=== PATIENT | male | born 1945 | race African-American/Black ===

== ENCOUNTER 2018-03-18 16:09 | Inpatient (IN) | payer MEDICARE ==
[~2018-03-18] VITALS: Ht 170.2 cm; Wt 88.9 kg
--- NOTE | 2018-03-18 16:35 | PHYS DOC ---
Adult General Chief Complaint Chief Complaint: CHEST PAIN HPI HPI 72-year-old male presents to ER via POV with complaints of intermittent chest pain for the past 3 months. Patient states this morning at 3 AM he did have some increase in discomfort which radiated into his left upper arm and center of back. Pt reports he has had intermittent nausea and felt clammy. He reports he has had SOA w/exertion. He reports he had some intermittent dizziness but was able to drive himself to the ER. Pt reports current pain at 6/10 with increased pain with palp. of chest/back/arm. Pt reports he takes 81mg Aspirin daily but uncertain if he took 1 this morning. He denies being smoker, recent travel, or previous heart attack. He reports he has been told he has weak heart valve and has appt scheduled next wk with certified mortician. Review of Systems Review of Systems Constitutional: Denies fever or chills [] Eyes: Denies change in visual acuity, redness, or eye pain [] HENT: Denies nasal congestion or sore throat [] Respiratory: Denies cough. Reports intermittent SOA w/exertion Cardiovascular: Mid CP radiates into lt upper arm/center of back GI: Denies abdominal pain, vomiting, bloody stools or diarrhea. Reports intermittent nausea this morning- denies on initial exam : Denies dysuria or hematuria [] Musculoskeletal: Denies joint pain. Mid center back pain intermittent- denies on initial exam Integument: Denies rash or skin lesions. Denies swelling Neurologic: Denies headache, focal weakness or sensory changes. Reports intermittent dizziness- denies on initial exam All other systems were reviewed and found to be within normal limits, except as documented in this note. Current Medications Current Medications Current Medications Medications (Trade) Dose Ordered Sig/[facility] Start Time Stop Time Status Last Admin Dose Admin Albuterol/ Ipratropium (Duoneb) 3 ml 1X ONCE 03/18/18 17:45 03/18/18 17:46 DC 03/18/18 17:30 3 ML Aspirin (Children'S Aspirin) 324 mg 1X ONCE 03/18/18 16:45 03/18/18 16:46 DC 03/18/18 16:44 324 MG Nitroglycerin (Nitro-Bid Oint) 0.5 inch 1X ONCE 03/18/18 18:30 8/23/18 18:31 DC 03/18/18 18:12 0.5 INCH Nitroglycerin (Nitrostat) 0.4 mg 1X ONCE 03/18/18 16:45 03/18/18 16:46 DC 03/18/18 16:48 0.4 MG Sodium Chloride 500 ml @ 500 mls/hr 1X ONCE 03/18/18 16:45 03/18/18 17:44 DC 03/18/18 16:45 500 MLS/HR Allergies Allergies Allergies Coded Allergies Type Severity Reaction Last Updated Verified No Known Drug Allergies 03/18/18 No Physical Exam Physical Exam Constitutional: Well developed, well nourished, no acute distress, non-toxic appearance. [] HENT: Normocephalic, atraumatic, bilateral external ears normal, oropharynx moist, no oral exudates, nose normal. [] Eyes: PERRLA, EOMI, conjunctiva normal, no discharge. [] Neck: Normal range of motion, no tenderness, supple, no stridor. [] Cardiovascular:Heart rate regular rhythm, no murmur [] Lungs & Thorax: Bilateral breath sounds clear to auscultation [] Abdomen: Bowel sounds normal, soft, no tenderness, no masses, no pulsatile masses. [] Skin: Warm, dry, no erythema, no rash. [] Back: No tenderness, no CVA tenderness. [] Extremities: No tenderness, no cyanosis, no clubbing, ROM intact, no edema. [] Neurologic: Alert and oriented X 3, normal motor function, normal sensory function, no focal deficits noted. [] Psychologic: Affect normal, judgement normal, mood normal. [] Current Patient Data Vital Signs Vital Signs Date Time Temp Pulse Resp B/P (MAP) Pulse Ox O2 Delivery O2 Flow Rate FiO2 03/18/18 18:31 56 172/84 (113) 97 Room Air 03/18/18 18:05 12 03/18/18 16:11 98.3 98.3 Lab Values Laboratory Tests Test 03/18/18 16:31 03/18/18 16:43 03/18/18 18:10 White Blood Count 4.0 x10^3/uL (4.0-11.0) Red Blood Count 4.90 x10^6/uL (4.30-5.70) Hemoglobin 14.3 g/dL (13.0-17.5) Hematocrit 40.9 % (39.0-53.0) Mean Corpuscular Volume 84 fL (79-100) Mean Corpuscular Hemoglobin 29 pg (25-35) Mean Corpuscular Hemoglobin Concent 35 g/dL (31-37) Red Cell Distribution Width 14.4 % (11.5-14.5) Platelet Count 174 x10^3/uL (140-400) Neutrophils (%) (Auto) 47 % (31-73) Lymphocytes (%) (Auto) 42 % (24-48) Monocytes (%) (Auto) 8 % (0-9) Eosinophils (%) (Auto) 3 % (0-3) Basophils (%) (Auto) 1 % (0-3) Neutrophils # (Auto) 1.9 x10^3uL (1.8-7.7) Lymphocytes # (Auto) 1.7 x10^3/uL (1.0-4.8) Monocytes # (Auto) 0.3 x10^3/uL (0.0-1.1) Eosinophils # (Auto) 0.1 x10^3/uL (0.0-0.7) Basophils # (Auto) 0.0 x10^3/uL (0.0-0.2) Prothrombin Time 13.8 SEC (11.7-14.0) Prothrombin Time INR 1.1 (0.8-1.1) PTT 24 SEC (24-38) Sodium Level 137 mmol/L (136-145) Potassium Level 3.6 mmol/L (3.5-5.1) Chloride Level 103 mmol/L (98-107) Carbon Dioxide Level 27 mmol/L (21-32) Anion Gap 7 (6-14) Blood Urea Nitrogen 10 mg/dL (8-26) Creatinine 1.2 mg/dL (0.7-1.3) Estimated GFR (Cockcroft-Gault) 72.4 BUN/Creatinine Ratio 8 (6-20) Glucose Level 166 mg/dL (70-99) H Calcium Level 8.5 mg/dL (8.5-10.1) Magnesium Level 2.0 mg/dL (1.8-2.4) Total Bilirubin 0.4 mg/dL (0.2-1.0) Aspartate Amino Transferase (AST) 16 U/L (15-37) Alanine Aminotransferase (ALT) 26 U/L (16-63) Alkaline Phosphatase 72 U/L (46-116) Creatine Kinase 135 U/L (39-308) Creatine Kinase MB (Mass) 1.3 ng/mL (0.0-3.6) Creatine Kinase MB Relative Index 1.0 % (0-4) Troponin I Quantitative 0.018 ng/mL (0.000-0.055) 0.019 ng/mL (0.000-0.055) QL-Rjl-A-Type Natriuretic Peptide 632 pg/mL (0-124) H Total Protein 6.8 g/dL (6.4-8.2) Albumin 3.5 g/dL (3.4-5.0) Albumin/Globulin Ratio 1.1 (1.0-1.7) Urine Collection Type Unknown Urine Color Yellow Urine Clarity Clear Urine pH 6.0 Urine Specific [place] <=1.005 Urine Protein Negative mg/dL (NEG-TRACE) Urine Glucose (UA) Negative mg/dL (NEG) Urine Ketones (Stick) Negative mg/dL (NEG) Urine Blood Negative (NEG) Urine Nitrite Negative (NEG) Urine Bilirubin Negative (NEG) Urine Urobilinogen Dipstick 0.2 mg/dL (0.2 mg/dL) Urine Leukocyte Esterase Negative (NEG) Urine RBC 0 /HPF (0-2) Urine WBC 0 /HPF (0-4) Urine Squamous Epithelial Cells Occ /LPF Urine Bacteria 0 /HPF (0-FEW) Laboratory Tests 03/18/18 16:31 Laboratory Tests 03/18/18 16:31 EKG EKG EKG obtained 03/18/18 at [address] Avenadño Sinus rhythm Lt axis deviation Vent rate 70 2nd EKG EKG obtained 03/18/18 at [address] Albrecht Sinus rhythm Similar to previous EKG on pt obtained today Vent rate 64 Radiology/Procedures Radiology/Procedures CHEST PA LATERAL History: Atraumatic mid sternal chest pain today radiating to the left arm, nausea, hypertension Comparison: None. Findings: 2 views of the chest are submitted. There is no infiltrate, pneumothorax, or effusion. The cardiac silhouette is within normal limits in size. Impression: 1. There is no evidence of acute cardiopulmonary disease. Electronically signed by: Anjel Almaraz MD (03/18/2018 5:11 PM) [id number] DICTATED and SIGNED BY: ANJEL ALMARAZ MD DATE: 03/18/18 1710 Indication:dizziness, "foggy vision" today, no priors TECHNIQUE: CT head without IV contrast COMPARISON:None FINDINGS: No pathologic extra-axial or intra-axial fluid collection. The ventricles and basal cisterns are within normal limits. No acute intracranial bleed. No focal loss of tierney-white differentiation. Orbits within normal limits. No suspicious calvarial lesion. Visualized paranasal sinuses and mastoid air cells are clear. IMPRESSION: No acute intracranial process. If concern for acute ischemic stroke is high, please consider MRI brain. Electronically signed by: Evan Merritt DO (03/18/2018 7:37 PM) [facility] DICTATED and SIGNED BY: EVAN MERRITT DO DATE: 03/18/18 193 Course & Med Decision Making Course & Med Decision Making Pertinent Labs and Imaging studies reviewed. (See chart for details) 1720: Discussed test results with pt with no acute findings on chest xray; EKG with no acute ST elevation/STEMI and troponin <0.018; other labs unremarkable. Pt reports with 1 nitro his CP has subsided. Pt on re-exam has rhonchi bilat. upper fortune- resp. are equal/nonlabored. Discussed giving Duoneb and then will re-eval lung sounds. With pt's CP intermittent x3 mo. and sxs starting today at 3 a.m. pt had EKG/ labs/chest xray obtained with continuous cardiac monitoring while in ER. EKG with no acute STEMI and troponin was neg. Pt has scheduled appointment with his certified mortician next week which he was advised to keep. Pt feels comfortable with home discharge and stated if sxs worsen or with concerns he would return to ER. 1745: RN reports patient has complaints of increased nausea and has blurred vision. He denies ALBERTO or eye pain. He is A&Ox3 with no focal neuro deficits. Pt reports he feels his CP has increased into his back again also. Will repeat EKG and troponin. Admission was discussed with change in sxs. Pt wants to discuss admission with his prior to agreeing with plan. 1817: spoke with pt's Erika via phone and she reports pt heart monitor on 2 wks ago and had abnorm. heart rhythms including runs of Vtach- she also reports pt had heart cath 1 mo. ago and his LAD is 50% occluded. Pt had not reported any of this during initial exam and during re-evaluations. Pt's reports pt had TIA approx. 5-6 wks ago when he was in [facility] and they opted not to give TPA during that episode with most sxs resolving without tx. She reports pt has had lt blurring since then. Discussed pt's plan of care and that he would be admitted to hosp. for further eval/care/monitoring. 183: spoke with Dr. Mcguire, hospitalist and discussed pt's case/plans for admission- CT head is pending at time of admit. Pt's repeat EKG with no acute changes when compared to previous. Repeat troponin <0.019. Pt had 1/2" nitro paste applied and at time of admission he reported CP at 1/10 denying SOA. He reports vision remained slightly blurred but had improved. He was A&Ox3 with NIHSS of 0. Pt's case and plan of care was discussed with Dr. Avendaño. Dragon Disclaimer Dragon Disclaimer This electronic medical record was generated, in whole or in part, using a voice recognition dictation system. Departure Departure Impression: Primary Impression: Chest pain Additional Impressions: Dizziness Blurred vision, bilateral Disposition: ADMITTED INPATIENT Admitting Physician: Felipa Mcguire Condition: STABLE Referrals: VAL FERRELL MD (PCP) Problem Qualifiers BENJAMIN JENNINGS APRN Mar 18, 2018 16:35
[2018-03-18 16:44] LABS: BASO % 1 % (0-3); EOS # 0.1 x10^3/uL (0.0-0.7); EOS % 3 % (0-3); HEMATOCRIT 40.9 % (39.0-53.0); HEMOGLOBIN 14.3 g/dL (13.0-17.5); LYMPH # 1.7 x10^3/uL (1.0-4.8); LYMPH % 42 % (24-48); MEAN CORPUSCULAR HEMOGLOBIN 29 pg (25-35); MEAN CORPUSCULAR HGB CONC 35 g/dL (31-37); MEAN CORPUSCULAR VOLUME 84 fL (79-100); MONO # 0.3 x10^3/uL (0.0-1.1); MONO % 8 % (0-9); NEUT # 1.9 x10^3uL (1.8-7.7); NEUT % 47 % (31-73); PLATELET COUNT 174 x10^3/uL (140-400); RED CELL DISTRIBUTION WIDTH 14.4 % (11.5-14.5)
[2018-03-18] MEDS ORDERED: NITROGLYCERIN SUBLINGUAL 0.4 MG BOTTLE OF 25. SL ONE (16:45)
[2018-03-18] MEDS ORDERED: IV NORMAL SALINE 500ML BAG 500 ML IV ONE (16:45)
[2018-03-18] MEDS ORDERED: ASPIRIN CHEWABLE 81 MG TABLET. PO ONE (16:45)
[2018-03-18 16:59] LABS: PROTHROMBIN TIME PATIENT 13.8 SEC (11.7-14.0)
[2018-03-18 17:00] LABS: CALCIUM 8.5 mg/dL (8.5-10.1); CREATININE 1.2 mg/dL (0.7-1.3); GFR 72.4; POTASSIUM 3.6 mmol/L (3.5-5.1)
[2018-03-18 17:06] LABS: ALBUMIN 3.5 g/dL (3.4-5.0); ALBUMIN/GLOBULIN RATIO 1.1 (1.0-1.7); TOTAL BILIRUBIN 0.4 mg/dL (0.2-1.0); TOTAL PROTEIN 6.8 g/dL (6.4-8.2)
--- NOTE | 2018-03-18 17:14 | RAD ---
CHEST PA LATERAL History: Atraumatic mid sternal chest pain today radiating to the left arm, nausea, hypertension Comparison: None. Findings: 2 views of the chest are submitted. There is no infiltrate, pneumothorax, or effusion. The cardiac silhouette is within normal limits in size. Impression: 1. There is no evidence of acute cardiopulmonary disease. Electronically signed by: Neville Schmidt MD (03/18/2018 5:11 PM) [id number]
[2018-03-18] MEDS ORDERED: IPRATRPIUM/ALBUTEROL 0.5/2.5MG 3 ML NEBU. NEB ONE (17:45)
[2018-03-18 18:14] LABS: BILIRUBIN,URINE NEGATIVE (NEG); CLARITY,URINE CLEAR; COLOR,URINE YELLOW; NITRITE,URINE NEGATIVE (NEG); PROTEIN,URINE NEGATIVE (NEG-TRACE); UROBILINOGEN,URINE 0.2 mg/dL (0.2 mg/dL)
[2018-03-18 18:25] LABS: BACTERIA,URINE 0 /HPF (0-FEW); RBC,URINE 0 /HPF (0-2); SQUAMOUS EPITHELIAL CELL,UR OCC /LPF; WBC,URINE 0 /HPF (0-4)
[2018-03-18] MEDS ORDERED: NITROGLYCERIN OINT 1 GM PACKET. TP ONE (18:30)
--- NOTE | 2018-03-18 19:40 | RAD ---
PQRS Compliance statement: One or more of the following individualized dose reduction techniques were utilized for this examination: 1. Automated exposure control. 2. Adjustment of the mA and/or kV according to patient size. 3. Use of iterative reconstruction technique. Indication:dizziness, "foggy vision" today, no priors TECHNIQUE: CT head without IV contrast COMPARISON:None FINDINGS: No pathologic extra-axial or intra-axial fluid collection. The ventricles and basal cisterns are within normal limits. No acute intracranial bleed. No focal loss of tierney-white differentiation. Orbits within normal limits. No suspicious calvarial lesion. Visualized paranasal sinuses and mastoid air cells are clear. IMPRESSION: No acute intracranial process. If concern for acute ischemic stroke is high, please consider MRI brain. Electronically signed by: Evan Merritt DO (03/18/2018 7:37 PM) [facility]
--- NOTE | 2018-03-18 19:55 | PDOC1 ---
History and Physical Date of Admission Date of Admission DATE: 03/18/18 TIME: 19:54 History of Present Illness History of Present Illness Mr. Ibanez, is a 72-year-old male admti with sudden chest pain to right side of chest. Pain happened on his way to the [facility], and he was brought here urgently by EMS, even though he is usually seen for all prior rubalcava at [facility] His pain this evening is improved, it was right sided and sharp, and maybe improved with nitro paste given in the ER. THe discomfort radiated into his left upper arm and center of back. He has intermittent chest pain for the past 3 months, was given nitro by cardio, didn't have any with him when he went to the [facility] today. . He reports he has had SOA w/exertion. POssible nausea, but he is now eating well. Past Medical History Cardiovascular: CAD, HTN Pulmonary: No pertinent hx Endocrine: No pertinent hx Family History Family History: Heart Disease Social History Smoke: No ALCOHOL: rare Drugs: None Current Problem List Problem List Problems Medical Problems: (1) Blurred vision, bilateral Status: Acute (2) Chest pain Status: Acute (3) Dizziness Status: Acute Current Medications Current Medications Current Medications Aspirin (Children'S Aspirin) 324 mg 1X ONCE PO Last administered on 03/18/18at 16:44; Start 03/18/18 at 16:45; Stop 03/18/18 at 16:46; Status DC Nitroglycerin (Nitrostat) 0.4 mg 1X ONCE SL Last administered on 03/18/18at 16: 48; Start 03/18/18 at 16:45; Stop 03/18/18 at 16:46; Status DC Sodium Chloride 500 ml @ 500 mls/hr 1X ONCE IV Last administered on at 16:45; Start 03/18/18 at 16:45; Stop 03/18/18 at 17:44; Status DC Albuterol/ Ipratropium (Duoneb) 3 ml 1X ONCE NEB Last administered on at 17:30; Start 03/18/18 at 17:45; Stop 03/18/18 at 17:46; Status DC Nitroglycerin (Nitro-Bid Oint) 0.5 inch 1X ONCE TP Last administered on at 18:12; Start 03/18/18 at 18:30; Stop 03/18/18 at 18:31; Status DC Allergies Allergies: Coded Allergies: No Known Drug Allergies (Unverified , 03/18/18) ROS General: No: Chills, Night Sweats, Fatigue, Malaise, Appetite, Other PSYCHOLOGICAL ROS: No: Anxiety, Behavioral Disorder, Concentration difficultie , Decreased libido, Depression, Disorientation, Hallucinations, Hostility, Irritablity, Memory difficulties, Mood Swings, Obsessive thoughts, Physical abuse, Sexual abuse, Sleep disturbances, Suicidal ideation, Other Eyes: No Blurry vision, No Decreased vision, No Double vision, No Dry eyes, No Excessive tearing, No Eye Pain, No Itchy Eyes, No Loss of vision, No Photophobia , No Scotomata, No Uses contacts, No Uses glasses, No Other HEENT: No: Heacaches, Visual Changes, Hearing change, Nasal congestion, Nasal discharge, Oral lesions, Sinus pain, Sore Throat, Epistaxis, Sneezing, Snoring, Tinnitus, Vertigo, Vocal changes, Other Respiratory: YES: SOB with excertion; No: Cough, Hemoptysis, Orthopnea, Pleuritic Pain, Shortness of breath, Sputum Changes, Stridor, Tachypnea, Wheezing, Other Cardiovascular: yes Chest Pain Gastrointestinal: No Nausea, No Vomiting, No Abdominal Pain, No Diarrhea, No Constipation, No Melena, No Hematochezia, No Other Genitourinary: No Dysuria, No Frequency, No Incontinence, No Hematuria, No Retention, No Discharge, No Urgency, No Pain, No Flank Pain, No Other, No , No , No , No , No , No , No Musculoskeletal: Yes Joint Stiffness Neurological: No Behavorial Changes, No Bowel/Bladder ControlChng, No Confusion , No Dizziness, No Gait Disturbance, No Headaches, No Impaired Coord/balance, No Memory Loss, No Numbness/Tingling, No Seizures, No Speech Problems, No Tremors, No Visual Changes, No Weakness, No Other Skin: No Dry Skin, No Eczema, No Hair Changes, No Lumps, No Mole Changes, No Mottling, No Nail Changes, No Pruritus, No Rash, No Skin Lesion Changes, No Other, No Acne Physical Exam General: Alert, Cooperative, No acute distress HEENT: Mucous membr. moist/pink Lungs: Clear to auscultation Heart: S1S2, no murmurs Abdomen: Normal bowel sounds Rectal Exam: not examined Extremities: No cyanosis, No edema, Normal pulses Skin: No rashes Neuro: Normal speech, Normal tone, Cranial nerves 3-12 NL Psych/Mental Status: Mental status NL, Mood NL Vitals Vitals Vital Signs Date Time Temp Pulse Resp B/P (MAP) Pulse Ox O2 Delivery O2 Flow Rate FiO2 03/18/18 18:31 56 172/84 (113) 97 Room Air 03/18/18 18:05 12 03/18/18 16:11 98.3 98.3 Labs Labs Laboratory Tests Test 03/18/18 16:31 03/18/18 16:43 03/18/18 18:10 White Blood Count 4.0 x10^3/uL (4.0-11.0) Red Blood Count 4.90 x10^6/uL (4.30-5.70) Hemoglobin 14.3 g/dL (13.0-17.5) Hematocrit 40.9 % (39.0-53.0) Mean Corpuscular Volume 84 fL (79-100) Mean Corpuscular Hemoglobin 29 pg (25-35) Mean Corpuscular Hemoglobin Concent 35 g/dL (31-37) Red Cell Distribution Width 14.4 % (11.5-14.5) Platelet Count 174 x10^3/uL (140-400) Neutrophils (%) (Auto) 47 % (31-73) Lymphocytes (%) (Auto) 42 % (24-48) Monocytes (%) (Auto) 8 % (0-9) Eosinophils (%) (Auto) 3 % (0-3) Basophils (%) (Auto) 1 % (0-3) Neutrophils # (Auto) 1.9 x10^3uL (1.8-7.7) Lymphocytes # (Auto) 1.7 x10^3/uL (1.0-4.8) Monocytes # (Auto) 0.3 x10^3/uL (0.0-1.1) Eosinophils # (Auto) 0.1 x10^3/uL (0.0-0.7) Basophils # (Auto) 0.0 x10^3/uL (0.0-0.2) Prothrombin Time 13.8 SEC (11.7-14.0) Prothromb Time International Ratio 1.1 (0.8-1.1) Activated Partial Thromboplast Time 24 SEC (24-38) Sodium Level 137 mmol/L (136-145) Potassium Level 3.6 mmol/L (3.5-5.1) Chloride Level 103 mmol/L (98-107) Carbon Dioxide Level 27 mmol/L (21-32) Anion Gap 7 (6-14) Blood Urea Nitrogen 10 mg/dL (8-26) Creatinine 1.2 mg/dL (0.7-1.3) Estimated GFR (Cockcroft-Gault) 72.4 BUN/Creatinine Ratio 8 (6-20) Glucose Level 166 mg/dL (70-99) Calcium Level 8.5 mg/dL (8.5-10.1) Magnesium Level 2.0 mg/dL (1.8-2.4) Total Bilirubin 0.4 mg/dL (0.2-1.0) Aspartate Amino Transf (AST/SGOT) 16 U/L (15-37) Alanine Aminotransferase (ALT/SGPT) 26 U/L (16-63) Alkaline Phosphatase 72 U/L (46-116) Creatine Kinase 135 U/L (39-308) Creatine Kinase MB (Mass) 1.3 ng/mL (0.0-3.6) Creatine Kinase MB Relative Index 1.0 % (0-4) Troponin I Quantitative 0.018 ng/mL (0.000-0.055) 0.019 ng/mL (0.000-0.055) PO-Sul-I-Type Natriuretic Peptide 632 pg/mL (0-124) Total Protein 6.8 g/dL (6.4-8.2) Albumin 3.5 g/dL (3.4-5.0) Albumin/Globulin Ratio 1.1 (1.0-1.7) Urine Collection Type Unknown Urine Color Yellow Urine Clarity Clear Urine pH 6.0 Urine Specific Kenneth <=1.005 Urine Protein Negative mg/dL (NEG-TRACE) Urine Glucose (UA) Negative mg/dL (NEG) Urine Ketones (Stick) Negative mg/dL (NEG) Urine Blood Negative (NEG) Urine Nitrite Negative (NEG) Urine Bilirubin Negative (NEG) Urine Urobilinogen Dipstick 0.2 mg/dL (0.2 mg/dL) Urine Leukocyte Esterase Negative (NEG) Urine RBC 0 /HPF (0-2) Urine WBC 0 /HPF (0-4) Urine Squamous Epithelial Cells Occ /LPF Urine Bacteria 0 /HPF (0-FEW) Laboratory Tests Test 03/18/18 16:31 03/18/18 16:43 03/18/18 18:10 White Blood Count 4.0 x10^3/uL (4.0-11.0) Red Blood Count 4.90 x10^6/uL (4.30-5.70) Hemoglobin 14.3 g/dL (13.0-17.5) Hematocrit 40.9 % (39.0-53.0) Mean Corpuscular Volume 84 fL (79-100) Mean Corpuscular Hemoglobin 29 pg (25-35) Mean Corpuscular Hemoglobin Concent 35 g/dL (31-37) Red Cell Distribution Width 14.4 % (11.5-14.5) Platelet Count 174 x10^3/uL (140-400) Neutrophils (%) (Auto) 47 % (31-73) Lymphocytes (%) (Auto) 42 % (24-48) Monocytes (%) (Auto) 8 % (0-9) Eosinophils (%) (Auto) 3 % (0-3) Basophils (%) (Auto) 1 % (0-3) Neutrophils # (Auto) 1.9 x10^3uL (1.8-7.7) Lymphocytes # (Auto) 1.7 x10^3/uL (1.0-4.8) Monocytes # (Auto) 0.3 x10^3/uL (0.0-1.1) Eosinophils # (Auto) 0.1 x10^3/uL (0.0-0.7) Basophils # (Auto) 0.0 x10^3/uL (0.0-0.2) Prothrombin Time 13.8 SEC (11.7-14.0) Prothromb Time International Ratio 1.1 (0.8-1.1) Activated Partial Thromboplast Time 24 SEC (24-38) Sodium Level 137 mmol/L (136-145) Potassium Level 3.6 mmol/L (3.5-5.1) Chloride Level 103 mmol/L (98-107) Carbon Dioxide Level 27 mmol/L (21-32) Anion Gap 7 (6-14) Blood Urea Nitrogen 10 mg/dL (8-26) Creatinine 1.2 mg/dL (0.7-1.3) Estimated GFR (Cockcroft-Gault) 72.4 BUN/Creatinine Ratio 8 (6-20) Glucose Level 166 mg/dL (70-99) Calcium Level 8.5 mg/dL (8.5-10.1) Magnesium Level 2.0 mg/dL (1.8-2.4) Total Bilirubin 0.4 mg/dL (0.2-1.0) Aspartate Amino Transf (AST/SGOT) 16 U/L (15-37) Alanine Aminotransferase (ALT/SGPT) 26 U/L (16-63) Alkaline Phosphatase 72 U/L (46-116) Creatine Kinase 135 U/L (39-308) Creatine Kinase MB (Mass) 1.3 ng/mL (0.0-3.6) Creatine Kinase MB Relative Index 1.0 % (0-4) Troponin I Quantitative 0.018 ng/mL (0.000-0.055) 0.019 ng/mL (0.000-0.055) AU-Kqk-A-Type Natriuretic Peptide 632 pg/mL (0-124) Total Protein 6.8 g/dL (6.4-8.2) Albumin 3.5 g/dL (3.4-5.0) Albumin/Globulin Ratio 1.1 (1.0-1.7) Urine Collection Type Unknown Urine Color Yellow Urine Clarity Clear Urine pH 6.0 Urine Specific Kenneth <=1.005 Urine Protein Negative mg/dL (NEG-TRACE) Urine Glucose (UA) Negative mg/dL (NEG) Urine Ketones (Stick) Negative mg/dL (NEG) Urine Blood Negative (NEG) Urine Nitrite Negative (NEG) Urine Bilirubin Negative (NEG) Urine Urobilinogen Dipstick 0.2 mg/dL (0.2 mg/dL) Urine Leukocyte Esterase Negative (NEG) Urine RBC 0 /HPF (0-2) Urine WBC 0 /HPF (0-4) Urine Squamous Epithelial Cells Occ /LPF Urine Bacteria 0 /HPF (0-FEW) VTE Prophylaxis Ordered VTE Prophylaxis Devices: No VTE Pharmacological Prophylaxi: Yes Assessment/Plan Assessment/Plan chest pain, angina, recent w/u at [facility], stress test, his implied stable angina, not on meds for CAD recent TIA - had been seen at some cognitive decline, 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
[2018-03-18] MEDS ORDERED: LISINOPRIL 10 MG TABLET PO ONE (20:00)
[2018-03-18] MEDS ORDERED: MORPHINE SULFATE 4 MG/ML VIAL. IV PRN (20:00)
--- NOTE | 2018-03-18 21:10 | PDOC2 ---
NEUROLOGY CONSULT Date of Admission Date of Admission DATE: 03/18/18 TIME: 21:02 Reason for Consult Reason for Consult: IMPRESSION: Blurred vision x 2 times. TIA symptoms. Dizziness. Nausea. Chest pain. CAD. HTN. HLD. RECOMMENDATIONS/PLAN: ASA 325 mg daily. Fasting lipid panel. Carotid A US + Doppler. Echo + bubble study. Lab: see orders. Please consult Cardiology. HISTORY OF THE PRESENT ILLNESS: 72-y-old male patient with above medical disease developed symptoms of chest pain. He also complained dizziness, light headiness, nausea and blurred vision 2 times lasting for about 1-3 minutes each time. No focalized sensory or motor deficits. PAST MEDICAL HISTORY: Please see above. PAST SURGERY HISTORY: No major surgery recently. ALLERGY: NKDA MEDICATIONS: Refer to [facility] HISTORY: Non contributory. SOCIAL HISTORY: Lives at home. Denies smoking, drinking, and illicit drug use. REVIEW OF SYSTEMS: Constitutional: No malnutrition, weight loss, cachexia. Head: No traumatic brain or head injury. Skin: No edema, or rash. Ear: No infection. Eyes: No vision loss or color blindness. Nose: No bleeding or purulent discharges. Hearing: No hearing decrease. Neck: No injury. Cardiac: CAD, HTN, HLD. Pulmonary: No COPD. GI: No GI ulcer, GI bleeding. Urinary/genital: No dysuria, incontinence, urinary retention. Endocrinologic: No cousin face, craniofacial dysmorphism, polydactyly\. Skeletomuscular: No muscular atrophy, deformity. Neurological: see HP. Psychiatric: Denies drug use/abuse. Otherwise, not [id number] review of systems. PHYSICAL EXAMINATION: General appearance is in subacute distress. HEENT: Normocephalic and nontraumatic. Eyes, nose, ears, and throat are unremarkable. Neck is supple. No lymphadenopathy. No crepitus. Cardiovascular: S1, S2, regular rate and rhythm. Pulmonary: Clear to auscultation bilaterally. Abdomen: Bowel sounds are positive. Abdomen is soft, nontender, and nondistended. Extremities: No rash, lesions, or edema. No restriction of range of motion NEUROLOGICAL EXAMINATION: Alert Oriented to time, place and person. PERRL. EOMI. CN: no focal findings. Muscle tone: within normal. Muscle strength: 5 DTR: 2 Plantar reflex: Flexor response bilaterally Gait: not examined in bed. Sensory exam: no abnormal findings. No cerebellar signs elicited. F-T-N test accurate. Current Medications Current Medications Current Medications Aspirin (Children'S Aspirin) 324 mg 1X ONCE PO Last administered on 03/18/18at 16:44; Start 03/18/18 at 16:45; Stop 03/18/18 at 16:46; Status DC Nitroglycerin (Nitrostat) 0.4 mg 1X ONCE SL Last administered on 03/18/18at 16: 48; Start 03/18/18 at 16:45; Stop 03/18/18 at 16:46; Status DC Sodium Chloride 500 ml @ 500 mls/hr 1X ONCE IV Last administered on at 16:45; Start 03/18/18 at 16:45; Stop 03/18/18 at 17:44; Status DC Albuterol/ Ipratropium (Duoneb) 3 ml 1X ONCE NEB Last administered on at 17:30; Start 03/18/18 at 17:45; Stop 03/18/18 at 17:46; Status DC Nitroglycerin (Nitro-Bid Oint) 0.5 inch 1X ONCE TP Last administered on at 18:12; Start 03/18/18 at 18:30; Stop 03/18/18 at 18:31; Status DC Lisinopril (Prinivil) 10 mg 1X ONCE PO ; Start 03/18/18 at 20:00; Stop at 20:01; Status UNV Carvedilol (Coreg) 6.25 mg BIDWMEALS PO ; Start 03/19/18 at 08:00; Status UNV Morphine Sulfate (Morphine Sulfate) 4 mg Q2HR PRN IV pain; Start 03/18/18 at 20 :00; Status UNV Allergies Allergies: Allergies Coded Allergies Type Severity Reaction Last Updated Verified No Known Drug Allergies 03/18/18 No ROS Review of System The patient denies any associated fevers, chills, headache, ear pain, rhinorrhea , sore throat, stiff neck, productive cough, chest pain, shortness of breath, back or flank pain, abdominal pain, nausea, vomiting, diarrhea, constipation, dysuria, rash, numbness, weakness, tingling, incontinence, difficulty ambulating, or diaphoresis. Physical Exam Physical Exam General: Well developed, well nourished, no acute distress, well appearing HEENT: Pupils equally round and reactive to light, EOMI, no discharge, normal conjunctiva Neck: Supple, no nuchal rigidity, no JVD, trachea midline, no tenderness Cardiac: RRR, no murmurs, no gallops, no rubs Chest/Lungs: CTAB, no wheeze, no rhonchi, no crackles Abdomen: soft, non-distended, no guarding, no peritoneal signs, non-tender Back: No tenderness Extremities: no edema, pulses intact, non-tender,capillary refill <3 sec bilateral upper and lower extremities, Neuro: Alert and oriented x 4, no focal deficits, normal speech Vitals Vitals: Vital Signs Date Time Temp Pulse Resp B/P (MAP) Pulse Ox O2 Delivery O2 Flow Rate FiO2 03/18/18 18:31 56 172/84 (113) 97 Room Air 03/18/18 18:05 12 03/18/18 16:11 98.3 98.3 Labs Labs Laboratory Tests Test 03/18/18 16:31 03/18/18 16:43 03/18/18 18:10 White Blood Count 4.0 x10^3/uL (4.0-11.0) Red Blood Count 4.90 x10^6/uL (4.30-5.70) Hemoglobin 14.3 g/dL (13.0-17.5) Hematocrit 40.9 % (39.0-53.0) Mean Corpuscular Volume 84 fL (79-100) Mean Corpuscular Hemoglobin 29 pg (25-35) Mean Corpuscular Hemoglobin Concent 35 g/dL (31-37) Red Cell Distribution Width 14.4 % (11.5-14.5) Platelet Count 174 x10^3/uL (140-400) Neutrophils (%) (Auto) 47 % (31-73) Lymphocytes (%) (Auto) 42 % (24-48) Monocytes (%) (Auto) 8 % (0-9) Eosinophils (%) (Auto) 3 % (0-3) Basophils (%) (Auto) 1 % (0-3) Neutrophils # (Auto) 1.9 x10^3uL (1.8-7.7) Lymphocytes # (Auto) 1.7 x10^3/uL (1.0-4.8) Monocytes # (Auto) 0.3 x10^3/uL (0.0-1.1) Eosinophils # (Auto) 0.1 x10^3/uL (0.0-0.7) Basophils # (Auto) 0.0 x10^3/uL (0.0-0.2) Prothrombin Time 13.8 SEC (11.7-14.0) Prothromb Time International Ratio 1.1 (0.8-1.1) Activated Partial Thromboplast Time 24 SEC (24-38) Sodium Level 137 mmol/L (136-145) Potassium Level 3.6 mmol/L (3.5-5.1) Chloride Level 103 mmol/L (98-107) Carbon Dioxide Level 27 mmol/L (21-32) Anion Gap 7 (6-14) Blood Urea Nitrogen 10 mg/dL (8-26) Creatinine 1.2 mg/dL (0.7-1.3) Estimated GFR (Cockcroft-Gault) 72.4 BUN/Creatinine Ratio 8 (6-20) Glucose Level 166 mg/dL (70-99) Calcium Level 8.5 mg/dL (8.5-10.1) Magnesium Level 2.0 mg/dL (1.8-2.4) Total Bilirubin 0.4 mg/dL (0.2-1.0) Aspartate Amino Transf (AST/SGOT) 16 U/L (15-37) Alanine Aminotransferase (ALT/SGPT) 26 U/L (16-63) Alkaline Phosphatase 72 U/L (46-116) Creatine Kinase 135 U/L (39-308) Creatine Kinase MB (Mass) 1.3 ng/mL (0.0-3.6) Creatine Kinase MB Relative Index 1.0 % (0-4) Troponin I Quantitative 0.018 ng/mL (0.000-0.055) 0.019 ng/mL (0.000-0.055) HD-Sly-N-Type Natriuretic Peptide 632 pg/mL (0-124) Total Protein 6.8 g/dL (6.4-8.2) Albumin 3.5 g/dL (3.4-5.0) Albumin/Globulin Ratio 1.1 (1.0-1.7) Urine Collection Type Unknown Urine Color Yellow Urine Clarity Clear Urine pH 6.0 Urine Specific Seney <=1.005 Urine Protein Negative mg/dL (NEG-TRACE) Urine Glucose (UA) Negative mg/dL (NEG) Urine Ketones (Stick) Negative mg/dL (NEG) Urine Blood Negative (NEG) Urine Nitrite Negative (NEG) Urine Bilirubin Negative (NEG) Urine Urobilinogen Dipstick 0.2 mg/dL (0.2 mg/dL) Urine Leukocyte Esterase Negative (NEG) Urine RBC 0 /HPF (0-2) Urine WBC 0 /HPF (0-4) Urine Squamous Epithelial Cells Occ /LPF Urine Bacteria 0 /HPF (0-FEW) Laboratory Tests Test 03/18/18 16:31 03/18/18 16:43 03/18/18 18:10 White Blood Count 4.0 x10^3/uL (4.0-11.0) Red Blood Count 4.90 x10^6/uL (4.30-5.70) Hemoglobin 14.3 g/dL (13.0-17.5) Hematocrit 40.9 % (39.0-53.0) Mean Corpuscular Volume 84 fL (79-100) Mean Corpuscular Hemoglobin 29 pg (25-35) Mean Corpuscular Hemoglobin Concent 35 g/dL (31-37) Red Cell Distribution Width 14.4 % (11.5-14.5) Platelet Count 174 x10^3/uL (140-400) Neutrophils (%) (Auto) 47 % (31-73) Lymphocytes (%) (Auto) 42 % (24-48) Monocytes (%) (Auto) 8 % (0-9) Eosinophils (%) (Auto) 3 % (0-3) Basophils (%) (Auto) 1 % (0-3) Neutrophils # (Auto) 1.9 x10^3uL (1.8-7.7) Lymphocytes # (Auto) 1.7 x10^3/uL (1.0-4.8) Monocytes # (Auto) 0.3 x10^3/uL (0.0-1.1) Eosinophils # (Auto) 0.1 x10^3/uL (0.0-0.7) Basophils # (Auto) 0.0 x10^3/uL (0.0-0.2) Prothrombin Time 13.8 SEC (11.7-14.0) Prothromb Time International Ratio 1.1 (0.8-1.1) Activated Partial Thromboplast Time 24 SEC (24-38) Sodium Level 137 mmol/L (136-145) Potassium Level 3.6 mmol/L (3.5-5.1) Chloride Level 103 mmol/L (98-107) Carbon Dioxide Level 27 mmol/L (21-32) Anion Gap 7 (6-14) Blood Urea Nitrogen 10 mg/dL (8-26) Creatinine 1.2 mg/dL (0.7-1.3) Estimated GFR (Cockcroft-Gault) 72.4 BUN/Creatinine Ratio 8 (6-20) Glucose Level 166 mg/dL (70-99) Calcium Level 8.5 mg/dL (8.5-10.1) Magnesium Level 2.0 mg/dL (1.8-2.4) Total Bilirubin 0.4 mg/dL (0.2-1.0) Aspartate Amino Transf (AST/SGOT) 16 U/L (15-37) Alanine Aminotransferase (ALT/SGPT) 26 U/L (16-63) Alkaline Phosphatase 72 U/L (46-116) Creatine Kinase 135 U/L (39-308) Creatine Kinase MB (Mass) 1.3 ng/mL (0.0-3.6) Creatine Kinase MB Relative Index 1.0 % (0-4) Troponin I Quantitative 0.018 ng/mL (0.000-0.055) 0.019 ng/mL (0.000-0.055) TU-Vyu-Q-Type Natriuretic Peptide 632 pg/mL (0-124) Total Protein 6.8 g/dL (6.4-8.2) Albumin 3.5 g/dL (3.4-5.0) Albumin/Globulin Ratio 1.1 (1.0-1.7) Urine Collection Type Unknown Urine Color Yellow Urine Clarity Clear Urine pH 6.0 Urine Specific Seney <=1.005 Urine Protein Negative mg/dL (NEG-TRACE) Urine Glucose (UA) Negative mg/dL (NEG) Urine Ketones (Stick) Negative mg/dL (NEG) Urine Blood Negative (NEG) Urine Nitrite Negative (NEG) Urine Bilirubin Negative (NEG) Urine Urobilinogen Dipstick 0.2 mg/dL (0.2 mg/dL) Urine Leukocyte Esterase Negative (NEG) Urine RBC 0 /HPF (0-2) Urine WBC 0 /HPF (0-4) Urine Squamous Epithelial Cells Occ /LPF Urine Bacteria 0 /HPF (0-FEW) GABRIELE CHAVARRIA MD Mar 18, 2018 21:10
[2018-03-18] MEDS ORDERED: diphenhydrAMINE HCL 25 MG CAPSULE PO ONE (21:15)
[2018-03-18] MEDS ORDERED: NITROGLYCERIN SUBLINGUAL 0.4 MG BOTTLE OF 25. SL PRN (21:15)
[2018-03-18] MEDS: traMADol 50 MG TABLET PO PRN (21:24)
[2018-03-19] MEDS ORDERED: ONDANSETRON PF 4 MG/2 ML VIAL. IV PRN (02:15)
[2018-03-19] MEDS ORDERED: ATOR40TA PO (06:03)
[2018-03-19] MEDS ORDERED: HYDR12.58 PO (06:03)
[2018-03-19] MEDS ORDERED: ASPI-630 PO (06:03)
--- NOTE | 2018-03-19 06:10 | EKG ---
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
--- NOTE | 2018-03-19 06:11 | EKG ---
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
[2018-03-19 07:00] VITALS: BP 140/81
[2018-03-19] MEDS ORDERED: CARVEDILOL 6.25 MG TABLET. PO SCH (08:00)
[2018-03-19] MEDS ORDERED: ASPIRIN 325 MG TABLET PO SCH (08:00)
--- NOTE | 2018-03-19 08:00 | RAD ---
Carotid ultrasound, 03/18/2018: HISTORY: Left arm pain Duplex evaluation of the carotid arteries and neck was performed including grayscale, color-flow and spectral Doppler analysis. There is mild intimal thickening in the common carotid arteries and at the carotid bifurcations. The peak systolic velocity in the right internal carotid artery is 64 cm/s with an end-diastolic velocity of 14 cm/s. The peak systolic velocity in the left internal carotid artery is 67 cm per sec with an end-diastolic velocity of 20 cm/s. These Doppler findings do not suggest significant stenosis. Antegrade flow is present in both vertebral arteries in the neck. IMPRESSION: No duplex evidence of significant carotid stenosis in the neck. Note: Stenosis calculations for CT, MRA and conventional angiography are based upon determination of the distal ICA diameter in accordance with the NASCET methodology. Stenosis calculations for Doppler studies are derived from validated velocity criteria which are known to correlate with NASCET methodology of determining stenosis. Electronically signed by: Taye Castle MD (03/19/2018 7:57 AM) [facility]
[2018-03-19 08:05] LABS: BASO % 0 % (0-3); EOS # 0.1 x10^3/uL (0.0-0.7); EOS % 3 % (0-3); HEMOGLOBIN 13.9 g/dL (13.0-17.5); LYMPH # 1.4 x10^3/uL (1.0-4.8); LYMPH % 38 % (24-48); MEAN CORPUSCULAR HEMOGLOBIN 28 pg (25-35); MEAN CORPUSCULAR HGB CONC 34 g/dL (31-37); MEAN CORPUSCULAR VOLUME 84 fL (79-100); MONO # 0.4 x10^3/uL (0.0-1.1); MONO % 11 % (0-9); NEUT # 1.7 x10^3uL (1.8-7.7); NEUT % 48 % (31-73); PLATELET COUNT 166 x10^3/uL (140-400); RED BLOOD COUNT 4.87 x10^6/uL (4.30-5.70); RED CELL DISTRIBUTION WIDTH 14.1 % (11.5-14.5); WHITE BLOOD COUNT 3.7 x10^3/uL (4.0-11.0)
[2018-03-19 08:23] LABS: ALBUMIN 3.2 g/dL (3.4-5.0); CALCIUM 8.3 mg/dL (8.5-10.1); CREATININE 1.2 mg/dL (0.7-1.3); GFR 72.4; TOTAL BILIRUBIN 0.6 mg/dL (0.2-1.0); TOTAL PROTEIN 6.3 g/dL (6.4-8.2)
[2018-03-19 08:28] LABS: CHOLESTEROL/HDL RATIO 2.8
[2018-03-19] MEDS ORDERED: ACETAMINOPHEN 500 MG TABLET PO PRN (09:00)
--- NOTE | 2018-03-19 10:02 | PDOC ---
PROGRESS NOTES Chief Complaint Chief Complaint CHest pain, hx CAD Blurred vision x 2 times. TIA symptoms. Dizziness. NAusea HTN. HLD. History of Present Illness History of Present Illness Out having tests Neurology note reviewed, for echo with bubble study, carotid ultrasounds Plan: Await from tests Neurology and cardiology involved Overnight chart reviewed, no overnight calls or acute issues LAbs okay Vitals Vitals Vital Signs Date Time Temp Pulse Resp B/P (MAP) Pulse Ox O2 Delivery O2 Flow Rate FiO2 03/19/18 07:00 97.5 55 16 140/81 (100) 94 Room Air 97.5 Labs LABS Laboratory Tests Test 03/18/18 16:31 03/18/18 16:43 03/18/18 18:10 03/19/18 07:33 White Blood Count 4.0 x10^3/uL (4.0-11.0) 3.7 x10^3/uL (4.0-11.0) Red Blood Count 4.90 x10^6/uL (4.30-5.70) 4.87 x10^6/uL (4.30-5.70) Hemoglobin 14.3 g/dL (13.0-17.5) 13.9 g/dL (13.0-17.5) Hematocrit 40.9 % (39.0-53.0) 41.0 % (39.0-53.0) Mean Corpuscular Volume 84 fL (79-100) 84 fL (79-100) Mean Corpuscular Hemoglobin 29 pg (25-35) 28 pg (25-35) Mean Corpuscular Hemoglobin Concent 35 g/dL (31-37) 34 g/dL (31-37) Red Cell Distribution Width 14.4 % (11.5-14.5) 14.1 % (11.5-14.5) Platelet Count 174 x10^3/uL (140-400) 166 x10^3/uL (140-400) Neutrophils (%) (Auto) 47 % (31-73) 48 % (31-73) Lymphocytes (%) (Auto) 42 % (24-48) 38 % (24-48) Monocytes (%) (Auto) 8 % (0-9) 11 % (0-9) Eosinophils (%) (Auto) 3 % (0-3) 3 % (0-3) Basophils (%) (Auto) 1 % (0-3) 0 % (0-3) Neutrophils # (Auto) 1.9 x10^3uL (1.8-7.7) 1.7 x10^3uL (1.8-7.7) Lymphocytes # (Auto) 1.7 x10^3/uL (1.0-4.8) 1.4 x10^3/uL (1.0-4.8) Monocytes # (Auto) 0.3 x10^3/uL (0.0-1.1) 0.4 x10^3/uL (0.0-1.1) Eosinophils # (Auto) 0.1 x10^3/uL (0.0-0.7) 0.1 x10^3/uL (0.0-0.7) Basophils # (Auto) 0.0 x10^3/uL (0.0-0.2) 0.0 x10^3/uL (0.0-0.2) Prothrombin Time 13.8 SEC (11.7-14.0) Prothromb Time International Ratio 1.1 (0.8-1.1) Activated Partial Thromboplast Time 24 SEC (24-38) Sodium Level 137 mmol/L (136-145) 140 mmol/L (136-145) Potassium Level 3.6 mmol/L (3.5-5.1) 4.0 mmol/L (3.5-5.1) Chloride Level 103 mmol/L (98-107) 104 mmol/L (98-107) Carbon Dioxide Level 27 mmol/L (21-32) 31 mmol/L (21-32) Anion Gap 7 (6-14) 5 (6-14) Blood Urea Nitrogen 10 mg/dL (8-26) 8 mg/dL (8-26) Creatinine 1.2 mg/dL (0.7-1.3) 1.2 mg/dL (0.7-1.3) Estimated GFR (Cockcroft-Gault) 72.4 72.4 BUN/Creatinine Ratio 8 (6-20) 7 (6-20) Glucose Level 166 mg/dL (70-99) 91 mg/dL (70-99) Calcium Level 8.5 mg/dL (8.5-10.1) 8.3 mg/dL (8.5-10.1) Magnesium Level 2.0 mg/dL (1.8-2.4) Total Bilirubin 0.4 mg/dL (0.2-1.0) 0.6 mg/dL (0.2-1.0) Aspartate Amino Transf (AST/SGOT) 16 U/L (15-37) 15 U/L (15-37) Alanine Aminotransferase (ALT/SGPT) 26 U/L (16-63) 24 U/L (16-63) Alkaline Phosphatase 72 U/L (46-116) 54 U/L (46-116) Creatine Kinase 135 U/L (39-308) Creatine Kinase MB (Mass) 1.3 ng/mL (0.0-3.6) Creatine Kinase MB Relative Index 1.0 % (0-4) Troponin I Quantitative 0.018 ng/mL (0.000-0.055) 0.019 ng/mL (0.000-0.055) MD-Mly-Z-Type Natriuretic Peptide 632 pg/mL (0-124) Total Protein 6.8 g/dL (6.4-8.2) 6.3 g/dL (6.4-8.2) Albumin 3.5 g/dL (3.4-5.0) 3.2 g/dL (3.4-5.0) Albumin/Globulin Ratio 1.1 (1.0-1.7) 1.0 (1.0-1.7) Urine Collection Type Unknown Urine Color Yellow Urine Clarity Clear Urine pH 6.[address] [place] <=1.005 Urine Protein Negative mg/dL (NEG-TRACE) Urine Glucose (UA) Negative mg/dL (NEG) Urine Ketones (Stick) Negative mg/dL (NEG) Urine Blood Negative (NEG) Urine Nitrite Negative (NEG) Urine Bilirubin Negative (NEG) Urine Urobilinogen Dipstick 0.2 mg/dL (0.2 mg/dL) Urine Leukocyte Esterase Negative (NEG) Urine RBC 0 /HPF (0-2) Urine WBC 0 /HPF (0-4) Urine Squamous Epithelial Cells Occ /LPF Urine Bacteria 0 /HPF (0-FEW) Vitamin B12 Level 278 pg/mL (247-911) Thyroid Stimulating Hormone (TSH) 1.188 uIU/mL (0.358-3.74) Triglycerides Level 47 mg/dL (0-150) Cholesterol Level 130 mg/dL (0-200) LDL Cholesterol, Calculated 74 mg/dL (0-100) VLDL Cholesterol, Calculated 9 mg/dL (0-40) Non-HDL Cholesterol Calculated 83 mg/dL (0-129) HDL Cholesterol 47 mg/dL (40-60) Cholesterol/HDL Ratio 2.8 Review of Systems Review of Systems Out having tests Assessment and Plan Assessmemt and Plan Problems Medical Problems: (1) Blurred vision, bilateral Status: Acute (2) Chest pain Status: Acute (3) Dizziness Status: Acute Comment Review of Relevant I have reviewed the following items emperatriz (where applicable) has been applied. Labs Laboratory Tests Test 03/18/18 16:31 03/18/18 16:43 03/18/18 18:10 03/19/18 07:33 White Blood Count 4.0 x10^3/uL (4.0-11.0) 3.7 x10^3/uL (4.0-11.0) Red Blood Count 4.90 x10^6/uL (4.30-5.70) 4.87 x10^6/uL (4.30-5.70) Hemoglobin 14.3 g/dL (13.0-17.5) 13.9 g/dL (13.0-17.5) Hematocrit 40.9 % (39.0-53.0) 41.0 % (39.0-53.0) Mean Corpuscular Volume 84 fL (79-100) 84 fL (79-100) Mean Corpuscular Hemoglobin 29 pg (25-35) 28 pg (25-35) Mean Corpuscular Hemoglobin Concent 35 g/dL (31-37) 34 g/dL (31-37) Red Cell Distribution Width 14.4 % (11.5-14.5) 14.1 % (11.5-14.5) Platelet Count 174 x10^3/uL (140-400) 166 x10^3/uL (140-400) Neutrophils (%) (Auto) 47 % (31-73) 48 % (31-73) Lymphocytes (%) (Auto) 42 % (24-48) 38 % (24-48) Monocytes (%) (Auto) 8 % (0-9) 11 % (0-9) Eosinophils (%) (Auto) 3 % (0-3) 3 % (0-3) Basophils (%) (Auto) 1 % (0-3) 0 % (0-3) Neutrophils # (Auto) 1.9 x10^3uL (1.8-7.7) 1.7 x10^3uL (1.8-7.7) Lymphocytes # (Auto) 1.7 x10^3/uL (1.0-4.8) 1.4 x10^3/uL (1.0-4.8) Monocytes # (Auto) 0.3 x10^3/uL (0.0-1.1) 0.4 x10^3/uL (0.0-1.1) Eosinophils # (Auto) 0.1 x10^3/uL (0.0-0.7) 0.1 x10^3/uL (0.0-0.7) Basophils # (Auto) 0.0 x10^3/uL (0.0-0.2) 0.0 x10^3/uL (0.0-0.2) Prothrombin Time 13.8 SEC (11.7-14.0) Prothromb Time International Ratio 1.1 (0.8-1.1) Activated Partial Thromboplast Time 24 SEC (24-38) Sodium Level 137 mmol/L (136-145) 140 mmol/L (136-145) Potassium Level 3.6 mmol/L (3.5-5.1) 4.0 mmol/L (3.5-5.1) Chloride Level 103 mmol/L (98-107) 104 mmol/L (98-107) Carbon Dioxide Level 27 mmol/L (21-32) 31 mmol/L (21-32) Anion Gap 7 (6-14) 5 (6-14) Blood Urea Nitrogen 10 mg/dL (8-26) 8 mg/dL (8-26) Creatinine 1.2 mg/dL (0.7-1.3) 1.2 mg/dL (0.7-1.3) Estimated GFR (Cockcroft-Gault) 72.4 72.4 BUN/Creatinine Ratio 8 (6-20) 7 (6-20) Glucose Level 166 mg/dL (70-99) 91 mg/dL (70-99) Calcium Level 8.5 mg/dL (8.5-10.1) 8.3 mg/dL (8.5-10.1) Magnesium Level 2.0 mg/dL (1.8-2.4) Total Bilirubin 0.4 mg/dL (0.2-1.0) 0.6 mg/dL (0.2-1.0) Aspartate Amino Transf (AST/SGOT) 16 U/L (15-37) 15 U/L (15-37) Alanine Aminotransferase (ALT/SGPT) 26 U/L (16-63) 24 U/L (16-63) Alkaline Phosphatase 72 U/L (46-116) 54 U/L (46-116) Creatine Kinase 135 U/L (39-308) Creatine Kinase MB (Mass) 1.3 ng/mL (0.0-3.6) Creatine Kinase MB Relative Index 1.0 % (0-4) Troponin I Quantitative 0.018 ng/mL (0.000-0.055) 0.019 ng/mL (0.000-0.055) CY-Fwh-L-Type Natriuretic Peptide 632 pg/mL (0-124) Total Protein 6.8 g/dL (6.4-8.2) 6.3 g/dL (6.4-8.2) Albumin 3.5 g/dL (3.4-5.0) 3.2 g/dL (3.4-5.0) Albumin/Globulin Ratio 1.1 (1.0-1.7) 1.0 (1.0-1.7) Urine Collection Type Unknown Urine Color Yellow Urine Clarity Clear Urine pH 6.[address] [place] <=1.005 Urine Protein Negative mg/dL (NEG-TRACE) Urine Glucose (UA) Negative mg/dL (NEG) Urine Ketones (Stick) Negative mg/dL (NEG) Urine Blood Negative (NEG) Urine Nitrite Negative (NEG) Urine Bilirubin Negative (NEG) Urine Urobilinogen Dipstick 0.2 mg/dL (0.2 mg/dL) Urine Leukocyte Esterase Negative (NEG) Urine RBC 0 /HPF (0-2) Urine WBC 0 /HPF (0-4) Urine Squamous Epithelial Cells Occ /LPF Urine Bacteria 0 /HPF (0-FEW) Vitamin B12 Level 278 pg/mL (247-911) Thyroid Stimulating Hormone (TSH) 1.188 uIU/mL (0.358-3.74) Triglycerides Level 47 mg/dL (0-150) Cholesterol Level 130 mg/dL (0-200) LDL Cholesterol, Calculated 74 mg/dL (0-100) VLDL Cholesterol, Calculated 9 mg/dL (0-40) Non-HDL Cholesterol Calculated 83 mg/dL (0-129) HDL Cholesterol 47 mg/dL (40-60) Cholesterol/HDL Ratio 2.8 Laboratory Tests Test 03/18/18 16:31 03/18/18 16:43 03/18/18 18:10 03/19/18 07:33 White Blood Count 4.0 x10^3/uL (4.0-11.0) 3.7 x10^3/uL (4.0-11.0) Red Blood Count 4.90 x10^6/uL (4.30-5.70) 4.87 x10^6/uL (4.30-5.70) Hemoglobin 14.3 g/dL (13.0-17.5) 13.9 g/dL (13.0-17.5) Hematocrit 40.9 % (39.0-53.0) 41.0 % (39.0-53.0) Mean Corpuscular Volume 84 fL (79-100) 84 fL (79-100) Mean Corpuscular Hemoglobin 29 pg (25-35) 28 pg (25-35) Mean Corpuscular Hemoglobin Concent 35 g/dL (31-37) 34 g/dL (31-37) Red Cell Distribution Width 14.4 % (11.5-14.5) 14.1 % (11.5-14.5) Platelet Count 174 x10^3/uL (140-400) 166 x10^3/uL (140-400) Neutrophils (%) (Auto) 47 % (31-73) 48 % (31-73) Lymphocytes (%) (Auto) 42 % (24-48) 38 % (24-48) Monocytes (%) (Auto) 8 % (0-9) 11 % (0-9) Eosinophils (%) (Auto) 3 % (0-3) 3 % (0-3) Basophils (%) (Auto) 1 % (0-3) 0 % (0-3) Neutrophils # (Auto) 1.9 x10^3uL (1.8-7.7) 1.7 x10^3uL (1.8-7.7) Lymphocytes # (Auto) 1.7 x10^3/uL (1.0-4.8) 1.4 x10^3/uL (1.0-4.8) Monocytes # (Auto) 0.3 x10^3/uL (0.0-1.1) 0.4 x10^3/uL (0.0-1.1) Eosinophils # (Auto) 0.1 x10^3/uL (0.0-0.7) 0.1 x10^3/uL (0.0-0.7) Basophils # (Auto) 0.0 x10^3/uL (0.0-0.2) 0.0 x10^3/uL (0.0-0.2) Prothrombin Time 13.8 SEC (11.7-14.0) Prothromb Time International Ratio 1.1 (0.8-1.1) Activated Partial Thromboplast Time 24 SEC (24-38) Sodium Level 137 mmol/L (136-145) 140 mmol/L (136-145) Potassium Level 3.6 mmol/L (3.5-5.1) 4.0 mmol/L (3.5-5.1) Chloride Level 103 mmol/L (98-107) 104 mmol/L (98-107) Carbon Dioxide Level 27 mmol/L (21-32) 31 mmol/L (21-32) Anion Gap 7 (6-14) 5 (6-14) Blood Urea Nitrogen 10 mg/dL (8-26) 8 mg/dL (8-26) Creatinine 1.2 mg/dL (0.7-1.3) 1.2 mg/dL (0.7-1.3) Estimated GFR (Cockcroft-Gault) 72.4 72.4 BUN/Creatinine Ratio 8 (6-20) 7 (6-20) Glucose Level 166 mg/dL (70-99) 91 mg/dL (70-99) Calcium Level 8.5 mg/dL (8.5-10.1) 8.3 mg/dL (8.5-10.1) Magnesium Level 2.0 mg/dL (1.8-2.4) Total Bilirubin 0.4 mg/dL (0.2-1.0) 0.6 mg/dL (0.2-1.0) Aspartate Amino Transf (AST/SGOT) 16 U/L (15-37) 15 U/L (15-37) Alanine Aminotransferase (ALT/SGPT) 26 U/L (16-63) 24 U/L (16-63) Alkaline Phosphatase 72 U/L (46-116) 54 U/L (46-116) Creatine Kinase 135 U/L (39-308) Creatine Kinase MB (Mass) 1.3 ng/mL (0.0-3.6) Creatine Kinase MB Relative Index 1.0 % (0-4) Troponin I Quantitative 0.018 ng/mL (0.000-0.055) 0.019 ng/mL (0.000-0.055) JH-Rld-L-Type Natriuretic Peptide 632 pg/mL (0-124) Total Protein 6.8 g/dL (6.4-8.2) 6.3 g/dL (6.4-8.2) Albumin 3.5 g/dL (3.4-5.0) 3.2 g/dL (3.4-5.0) Albumin/Globulin Ratio 1.1 (1.0-1.7) 1.0 (1.0-1.7) Urine Collection Type Unknown Urine Color Yellow Urine Clarity Clear Urine pH 6.[address] [place] <=1.005 Urine Protein Negative mg/dL (NEG-TRACE) Urine Glucose (UA) Negative mg/dL (NEG) Urine Ketones (Stick) Negative mg/dL (NEG) Urine Blood Negative (NEG) Urine Nitrite Negative (NEG) Urine Bilirubin Negative (NEG) Urine Urobilinogen Dipstick 0.2 mg/dL (0.2 mg/dL) Urine Leukocyte Esterase Negative (NEG) Urine RBC 0 /HPF (0-2) Urine WBC 0 /HPF (0-4) Urine Squamous Epithelial Cells Occ /LPF Urine Bacteria 0 /HPF (0-FEW) Vitamin B12 Level 278 pg/mL (247-911) Thyroid Stimulating Hormone (TSH) 1.188 uIU/mL (0.358-3.74) Triglycerides Level 47 mg/dL (0-150) Cholesterol Level 130 mg/dL (0-200) LDL Cholesterol, Calculated 74 mg/dL (0-100) VLDL Cholesterol, Calculated 9 mg/dL (0-40) Non-HDL Cholesterol Calculated 83 mg/dL (0-129) HDL Cholesterol 47 mg/dL (40-60) Cholesterol/HDL Ratio 2.8 Medications Current Medications Aspirin (Children'S Aspirin) 324 mg 1X ONCE PO Last administered on 03/18/18at 16:44; Start 03/18/18 at 16:45; Stop 03/18/18 at 16:46; Status DC Nitroglycerin (Nitrostat) 0.4 mg 1X ONCE SL Last administered on 03/18/18at 16: 48; Start 03/18/18 at 16:45; Stop 03/18/18 at 16:46; Status DC Sodium Chloride 500 ml @ 500 mls/hr 1X ONCE IV Last administered on at 16:45; Start 03/18/18 at 16:45; Stop 03/18/18 at 17:44; Status DC Albuterol/ Ipratropium (Duoneb) 3 ml 1X ONCE NEB Last administered on at 17:30; Start 03/18/18 at 17:45; Stop 03/18/18 at 17:46; Status DC Nitroglycerin (Nitro-Bid Oint) 0.5 inch 1X ONCE TP Last administered on at 18:12; Start 03/18/18 at 18:30; Stop 03/18/18 at 18:31; Status DC Lisinopril (Prinivil) 10 mg 1X ONCE PO ; Start 03/18/18 at 20:00; Stop at 20:01; Status UNV Carvedilol (Coreg) 6.25 mg BIDWMEALS PO ; Start 03/19/18 at 08:00; Status UNV Morphine Sulfate (Morphine Sulfate) 4 mg Q2HR PRN IV pain; Start 03/18/18 at 20 :00; Status UNV Aspirin (Jas Aspirin) 325 mg DAILYWBKFT PO ; Start 03/19/18 at 08:00; Status Cancel Diphenhydramine HCl (Benadryl) 25 mg 1X ONCE PO Last administered on 8/23/ 18at 21:21; Start 03/18/18 at 21:15; Stop 03/18/18 at 21:16; Status DC Tramadol HCl (Ultram) 50 mg PRN Q6HRS PRN PO MODERATE-SEVERE PAIN Last administered on 03/18/18at 21:24; Start 03/18/18 at 21:15 Nitroglycerin (Nitrostat) 0.4 mg PRN Q5MIN PRN SL CHEST PAIN; Start 03/18/18 at 21:15 Ondansetron HCl (Zofran) 8 mg PRN Q8HRS PRN IV NAUSEA/VOMITING Last administered on 03/19/18at 02:23; Start 03/19/18 at 02:15 Aspirin (Children'S Aspirin) 81 mg DAILY PO ; Start 03/19/18 at 09:00 Atorvastatin Calcium (Lipitor) 40 mg QHS PO ; Start 03/19/18 at 21:00 Hydrochlorothiazide (Microzide) 25 mg DAILY PO ; Start 03/19/18 at 09:00 Acetaminophen (Tylenol) 500 mg PRN Q6HRS PRN PO MILD PAIN / TEMP; Start at 09:00 Active Scripts Active Reported Lipitor (Atorvastatin Calcium) 40 Mg Tablet 1 Tab PO QHS Hydrochlorothiazide Tablet (Hydrochlorothiazide) 12.5 Mg Tablet 2 Tab PO DAILY Aspirin 81 Mg Tab.chew 1 Tab PO DAILY Vitals/I & O Vital Sign - Last 24 Hours 03/18/18 03/18/18 03/18/18 03/18/18 16:11 16:14 16:44 16:48 Temp 98.3 98.3 Pulse 73 71 63 68 Resp 16 23 16 B/P (MAP) 163/86 (111) 163/86 (111) 152/80 (104) 152/80 Pulse Ox 97 99 O2 Delivery Room Air Room Air Room Air 03/18/18 03/18/18 03/18/18 03/18/18 16:49 17:05 17:30 17:35 Pulse 74 58 60 Resp 20 20 20 B/P (MAP) 129/69 (89) 130/76 (94) 160/78 (105) Pulse Ox 99 95 97 96 O2 Delivery Room Air Room Air Room Air Room Air 03/18/18 03/18/18 03/18/18 03/18/18 18:05 18:12 18:31 21:24 Pulse 61 62 56 Resp 12 20 B/P (MAP) 148/86 (106) 148/86 172/84 (113) Pulse Ox 97 97 97 O2 Delivery Room Air Room Air Room Air 03/18/18 03/19/18 22:24 07:00 Temp 97.5 97.5 Pulse 55 Resp 20 16 B/P (MAP) 140/81 (100) Pulse Ox 97 94 O2 Delivery Room Air Room Air Intake and Output 03/18/18 03/18/18 03/19/18 15:00 23:00 07:00 Intake Total 500 ml 420 ml Output Total 650 ml Balance 500 ml -230 ml EDITH CABRERA MD Mar 19, 2018 10:02
--- NOTE | 2018-03-19 10:22 | PDOC2 ---
TRAM CASIANO HEARING AND SPEECH ASSISTANT 03/19/18 1022: CARDIAC CONSULT DATE OF CONSULT Date of Consult DATE: 03/19/18 TIME: 10:05 REASON FOR CONSULT Reason for Consult: chest pain REFERRING PHYSICIAN Referring Physician: Kassandra SOURCE Source: Chart review, Patient (who is a poor historian ) HISTORY OF PRESENT ILLNESS HISTORY OF PRESENT ILLNESS 72 year old male with at least a 3 month history of chest pain which was recently evaluated @ [facility]. He can not report results but by description did not have PCI/stent. ? of valvular disease at that time as well. Persistent substernal and left upper chest pain radiating straight through to back and down left arm to elbow. Not clearly exacerbated by deep inspiration or exertion and no clear associated symptoms. Described as sharp with a sensation of his insides being pushed out but also reports pain being dull. Had a headache with the pain yesterday. EKG and troponin levels not consistent with AMI. Currently pain free. 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) GI: No pertinent hx Heme/Onc: No pertinent hx Hepatobiliary: No pertinent hx Psych: No pertinent hx Musculoskeletal: No pain Rheumatologic: No pertinent hx Infectious disease: No pertinent hx ENT: No pertinent hx Renal/: No pertinent hx Endocrine: No pertinent hx Dermatology: No pertinent hx PAST SURGICAL HISTORY Past Surgical History: No pertinent history FAMILY HISTORY Family History: Heart Disease SOCIAL HISTORY Smoke: No ALCOHOL: none Drugs: None Lives: with Family CURRENT MEDICATIONS CURRENT MEDICATIONS Current Medications Medications (Trade) Dose Ordered Sig/Samara Route PRN Reason Start Time Stop Time Status Last Admin Dose Admin Aspirin (Children'S Aspirin) 324 mg 1X ONCE PO 03/18/18 16:45 03/18/18 16:46 DC 03/18/18 16:44 Nitroglycerin (Nitrostat) 0.4 mg 1X ONCE SL 03/18/18 16:45 03/18/18 16:46 DC 03/18/18 16:48 Sodium Chloride 500 ml @ 500 mls/hr 1X ONCE IV 03/18/18 16:45 03/18/18 17:44 DC 03/18/18 16:45 Albuterol/ Ipratropium (Duoneb) 3 ml 1X ONCE NEB 03/18/18 17:45 03/18/18 17:46 DC 03/18/18 17:30 Nitroglycerin (Nitro-Bid Oint) 0.5 inch 1X ONCE TP 03/18/18 18:30 03/18/18 18:31 DC 03/18/18 18:12 Diphenhydramine HCl (Benadryl) 25 mg 1X ONCE PO 03/18/18 21:15 03/18/18 21:16 DC 03/18/18 21:21 Tramadol HCl (Ultram) 50 mg PRN Q6HRS PRN PO MODERATE-SEVERE PAIN 03/18/18 21:15 03/18/18 21:24 Ondansetron HCl (Zofran) 8 mg PRN Q8HRS PRN IV NAUSEA/VOMITING 03/19/18 02:15 03/19/18 02:23 ALLERGIES ALLERGIES: Coded Allergies: No Known Drug Allergies (Unverified , 03/18/18) ROS General: No: Chills, Night Sweats, Fatigue, Malaise, Appetite, Other PSYCHOLOGICAL ROS: No: Anxiety, Behavioral Disorder, Concentration difficultie , Decreased libido, Depression, Disorientation, Hallucinations, Hostility, Irritablity, Memory difficulties, Mood Swings, Obsessive thoughts, Physical abuse, Sexual abuse, Sleep disturbances, Suicidal ideation, Other Eyes: No Blurry vision, No Decreased vision, No Double vision, No Dry eyes, No Excessive tearing, No Eye Pain, No Itchy Eyes, No Loss of vision, No Photophobia , No Scotomata, No Uses contacts, No Uses glasses, No Other HEENT: YES: [facility] ALLERGY AND IMMUNOLOGY: No: Hives, Insect Bite Sensitivity, Itchy/Watery Eyes, Nasal Congestion, Post Nasal Drip, Seasonal Allergies, Other Hematological and Lymphatic: No: Bleeding Problems, Blood Clots, Blood Transfusions, Brusing, Night Sweats, Pallor, Swollen Lymph Nodes, Other ENDOCRINE: No: Breast Changes, Galactorrhea, Hair Pattern Changes, Hot Flashes , Malaise/lethargy, Mood Swings, Palpitations, Polydipsia/polyuria, Skin Changes , Temperature Intolerance, Unexpected Weight Changes, Other Respiratory: No: Cough, Hemoptysis, Orthopnea, Pleuritic Pain, Shortness of breath, SOB with excertion, Sputum Changes, Stridor, Tachypnea, Wheezing, Other Cardiovascular: yes Chest Pain; No Palpitations, No Orthopnea, No Paroxysmal Noc. Dyspnea, No Edema, No Lt Headedness, No Other Gastrointestinal: No Nausea, No Vomiting, No Abdominal Pain, No Diarrhea, No Constipation, No Melena, No Hematochezia, No Other Genitourinary: No Dysuria, No Frequency, No Incontinence, No Hematuria, No Retention, No Discharge, No Urgency, No Pain, No Flank Pain, No Other PHYSICAL EXAM General: Alert, Cooperative, No acute distress HEENT: Atraumatic Lungs: Clear to auscultation, Normal air movement Heart: Normal S1, Normal S2, No murmurs, Other (no carotid bruits; pain reproducible with palpation on ribs about nipple level) Abdomen: Soft Extremities: No edema, Normal pulses Skin: No rashes Neuro: Normal speech Psych/Mental Status: Mental status NL, Mood NL MUSCULOSKELETAL: No deformity VITALS VITALS Vital Signs Date Time Temp Pulse Resp B/P (MAP) Pulse Ox O2 Delivery O2 Flow Rate FiO2 03/19/18 07:00 97.5 55 16 140/81 (100) 94 Room Air 97.5 LABS Lab: Laboratory Tests Test 03/18/18 16:31 03/18/18 16:43 03/18/18 18:10 03/19/18 07:33 White Blood Count 4.0 x10^3/uL (4.0-11.0) 3.7 x10^3/uL (4.0-11.0) Red Blood Count 4.90 x10^6/uL (4.30-5.70) 4.87 x10^6/uL (4.30-5.70) Hemoglobin 14.3 g/dL (13.0-17.5) 13.9 g/dL (13.0-17.5) Hematocrit 40.9 % (39.0-53.0) 41.0 % (39.0-53.0) Mean Corpuscular Volume 84 fL (79-100) 84 fL (79-100) Mean Corpuscular Hemoglobin 29 pg (25-35) 28 pg (25-35) Mean Corpuscular Hemoglobin Concent 35 g/dL (31-37) 34 g/dL (31-37) Red Cell Distribution Width 14.4 % (11.5-14.5) 14.1 % (11.5-14.5) Platelet Count 174 x10^3/uL (140-400) 166 x10^3/uL (140-400) Neutrophils (%) (Auto) 47 % (31-73) 48 % (31-73) Lymphocytes (%) (Auto) 42 % (24-48) 38 % (24-48) Monocytes (%) (Auto) 8 % (0-9) 11 % (0-9) Eosinophils (%) (Auto) 3 % (0-3) 3 % (0-3) Basophils (%) (Auto) 1 % (0-3) 0 % (0-3) Neutrophils # (Auto) 1.9 x10^3uL (1.8-7.7) 1.7 x10^3uL (1.8-7.7) Lymphocytes # (Auto) 1.7 x10^3/uL (1.0-4.8) 1.4 x10^3/uL (1.0-4.8) Monocytes # (Auto) 0.3 x10^3/uL (0.0-1.1) 0.4 x10^3/uL (0.0-1.1) Eosinophils # (Auto) 0.1 x10^3/uL (0.0-0.7) 0.1 x10^3/uL (0.0-0.7) Basophils # (Auto) 0.0 x10^3/uL (0.0-0.2) 0.0 x10^3/uL (0.0-0.2) Prothrombin Time 13.8 SEC (11.7-14.0) Prothromb Time International Ratio 1.1 (0.8-1.1) Activated Partial Thromboplast Time 24 SEC (24-38) Sodium Level 137 mmol/L (136-145) 140 mmol/L (136-145) Potassium Level 3.6 mmol/L (3.5-5.1) 4.0 mmol/L (3.5-5.1) Chloride Level 103 mmol/L (98-107) 104 mmol/L (98-107) Carbon Dioxide Level 27 mmol/L (21-32) 31 mmol/L (21-32) Anion Gap 7 (6-14) 5 (6-14) Blood Urea Nitrogen 10 mg/dL (8-26) 8 mg/dL (8-26) Creatinine 1.2 mg/dL (0.7-1.3) 1.2 mg/dL (0.7-1.3) Estimated GFR (Cockcroft-Gault) 72.4 72.4 BUN/Creatinine Ratio 8 (6-20) 7 (6-20) Glucose Level 166 mg/dL (70-99) 91 mg/dL (70-99) Calcium Level 8.5 mg/dL (8.5-10.1) 8.3 mg/dL (8.5-10.1) Magnesium Level 2.0 mg/dL (1.8-2.4) Total Bilirubin 0.4 mg/dL (0.2-1.0) 0.6 mg/dL (0.2-1.0) Aspartate Amino Transf (AST/SGOT) 16 U/L (15-37) 15 U/L (15-37) Alanine Aminotransferase (ALT/SGPT) 26 U/L (16-63) 24 U/L (16-63) Alkaline Phosphatase 72 U/L (46-116) 54 U/L (46-116) Creatine Kinase 135 U/L (39-308) Creatine Kinase MB (Mass) 1.3 ng/mL (0.0-3.6) Creatine Kinase MB Relative Index 1.0 % (0-4) Troponin I Quantitative 0.018 ng/mL (0.000-0.055) 0.019 ng/mL (0.000-0.055) UZ-Uet-R-Type Natriuretic Peptide 632 pg/mL (0-124) Total Protein 6.8 g/dL (6.4-8.2) 6.3 g/dL (6.4-8.2) Albumin 3.5 g/dL (3.4-5.0) 3.2 g/dL (3.4-5.0) Albumin/Globulin Ratio 1.1 (1.0-1.7) 1.0 (1.0-1.7) Urine Collection Type Unknown Urine Color Yellow Urine Clarity Clear Urine pH 6.0 Urine Specific [place] <=1.005 Urine Protein Negative mg/dL (NEG-TRACE) Urine Glucose (UA) Negative mg/dL (NEG) Urine Ketones (Stick) Negative mg/dL (NEG) Urine Blood Negative (NEG) Urine Nitrite Negative (NEG) Urine Bilirubin Negative (NEG) Urine Urobilinogen Dipstick 0.2 mg/dL (0.2 mg/dL) Urine Leukocyte Esterase Negative (NEG) Urine RBC 0 /HPF (0-2) Urine WBC 0 /HPF (0-4) Urine Squamous Epithelial Cells Occ /LPF Urine Bacteria 0 /HPF (0-FEW) Vitamin B12 Level 278 pg/mL (247-911) Thyroid Stimulating Hormone (TSH) 1.188 uIU/mL (0.358-3.74) Triglycerides Level 47 mg/dL (0-150) Cholesterol Level 130 mg/dL (0-200) LDL Cholesterol, Calculated 74 mg/dL (0-100) VLDL Cholesterol, Calculated 9 mg/dL (0-40) Non-HDL Cholesterol Calculated 83 mg/dL (0-129) HDL Cholesterol 47 mg/dL (40-60) Cholesterol/HDL Ratio 2.8 IMAGES IMAGES CXR, CDU & CT head without significant findings EKG EKG SINUS RHYTHM VENTRICULAR PREMATURE COMPLEX(ES) 1ST DEGREE AVB ECHOCARDIOGRAM ECHOCARDIOGRAM pending ASSESSMENT/PLAN ASSESSMENT/PLAN 1. chest pain --EKG and troponin levels not consistent with AMI; possibly reproducible --recent evaluation at with reportedly a 50% LAD lesion but no records for review -- have requested records --echo pending --continue aspirin and statin therapy 2. HTN --controlled with oral meds 3. HLD --LDLs controlled with statins 4. stroke history ARLYN SCHWAB MD 03/19/18 1222: CARDIAC CONSULT ASSESSMENT/PLAN ASSESSMENT/PLAN Pt. seen and examined. Agree with above [facility] note. Await OSH records. Unlikely to be cardiac origin. Normal cardiac exam. TRAM CASIANO APRN Mar 19, 2018 10:22 ARLYN SCHWAB MD Mar 19, 2018 12:22
--- NOTE | 2018-03-19 10:26 | CARD ---
MR#: [id number] Date of Study: 03/19/2018 Ordering Physician: GABRIELE CHAVARRIA, Referring Physician: ZAHEER LAGOS Tech: EUGENE No APPROVED REPORT EXAM: Two-dimensional and M-mode echocardiogram with Doppler and color Doppler. Other Information Quality : AverageHR: 51bpm INDICATION CVA/TIA Echo Enhancing Agent Indication: Rule Out Septal Defect Agent/Amount Used: Agitated Saline 7mL 2D DIMENSIONS RVDd3.2 (2.9-3.5cm)Left Atrium(2D)3.8 (1.6-4.0cm) IVSd1.5 (0.7-1.1cm)Aortic Root(2D)3.0 (2.0-3.7cm) LVDd5.0 (3.9-5.9cm)LVOT Diameter1.9 (1.8-2.4cm) PWd1.5 (0.7-1.1cm)IVSs2.1 (0.8-1.2cm) LVDs3.7 (2.5-4.0cm)FS (%) 25.9 % PWs1.9 (0.8-1.2cm)SV59.4 ml LVEF(%)50.7 (>50%) M-Mode DIMENSIONS IVSd1.15 (0.7-1.1cm)LVDd5.82 (4.0-5.6cm) PWd1.15 (0.7-1.1cm)IVSs1.43 cm FS (%) 27 %LVDs4.26 (2.0-3.8cm) PWs1.46 cmLVEF(%)51 (>50%) Aortic Valve AoV Peak Jesus.103.9cm/sAoV VTI24.6cm AO Peak GR.4.3mmHgLVOT Peak Jesus.75.0cm/s LVOT VTI 17.66cmAO Mean GR.3mmHg CHERYL (VMAX)1.75gu5ZMG (VTI)2.05cm2 Mitral Valve MV E Qvcuickb42.8cm/sMV E Peak Gr.22mmHg MV DECEL [id number] A Ojkvvaip73.4cm/s MV QEC59elN/A Ratio1.1 MVA (PHT)2.95cm2 TDI E/Lateral E'9.0E/Medial E'11.8 Pulmonary Valve PV Peak Nktwcfqr986.7cm/sPV Peak Grad.4mmHg Tricuspid Valve TR P. Sbtejmyk770gb/sRAP YHAZDVJB62zhTf TR Peak Gr.22kjJtALOP95gaEy LEFT VENTRICLE The left ventricle is normal size. There is moderate concentric left ventricular hypertrophy. Left ve ntricle systolic function is normal. The Ejection Fraction is 50-55%. There is normal LV segmental wa ll motion. The left ventricular diastolic function and filling is normal for age. There is no ventric ular septal defect visualized. RIGHT VENTRICLE The right ventricle is normal size. The right ventricular systolic function is normal. ATRIA The left atrium size is normal. The right atrium size is normal. The interatrial septum is intact wit h no evidence for an atrial septal defect or patent foramen ovale as noted on 2-D or Doppler imaging. Injection of bubbles documented no interatrial shunt. AORTIC VALVE The aortic valve is thickened but opens well. Doppler and Color Flow revealed no significant aortic r egurgitation. There is no significant aortic valvular stenosis. There is no aortic valvular vegetatio n. MITRAL VALVE The mitral valve is thickened but opens well. There is no evidence of mitral valve prolapse. There is no mitral valve stenosis. Doppler and Color-flow revealed trace mitral regurgitation. TRICUSPID VALVE The tricuspid valve leaflets are thickened , but open well. Doppler and Color Flow revealed trace tri cuspid regurgitation. The PA pressure was estimated at 29 mmHg. There is no tricuspid valve prolapse or vegetation. There is no tricuspid valve stenosis. PULMONIC VALVE The pulmonic valve is not well visualized. Doppler and Color Flow revealed trace pulmonic valvular re gurgitation. There is no pulmonic valvular stenosis. GREAT VESSELS The aortic root is normal in size. The IVC is dilated and collapses <50% with inspiration. PERICARDIAL EFFUSION There is no pleural effusion. There is no evidence of significant pericardial effusion. Critical Notification Critical Value: No <Conclusion> Left ventricle systolic function is normal. The Ejection Fraction is 50-55%. There is normal LV segmental wall motion. Trace mitral regurgitation. Trace tricuspid regurgitation. The PA pressure was estimated at 29 mmHg. There is no evidence of significant pericardial effusion. Signed by : Josiah Burns, Electronically Approved : 03/19/2018 10:26:10
[2018-03-19 11:00] VITALS: BP 126/74
[2018-03-19] MEDS: hydroCHLOROthiazide 12.5 MG CAPSULE PO SCH (11:51)
[2018-03-19] MEDS: ASPIRIN CHEWABLE 81 MG TABLET. PO SCH (11:51)
--- NOTE | 2018-03-19 14:20 | PDOC ---
PROGRESS NOTES Assessment Assessment Blurred vision x 2 times, 1-3 minutes each time. TIA symptoms. Dizziness. Nausea. Chest pain. CAD. HTN. HLD. No signs of large acute CVA this time. RECOMMENDATIONS/PLAN: ASA 325 mg daily. Please consult Cardiology. Fasting lipid panel: WNL. Carotid A US + Doppler: No high grade stenosis.. Echo + bubble study: Unremarkable. HCT: negative. HISTORY OF THE PRESENT ILLNESS: 72-y-old male patient with above medical disease developed symptoms of chest pain. He also complained dizziness, light headiness, nausea and blurred vision 2 times lasting for about 1-3 minutes each time. No focalized sensory or motor deficits. PAST MEDICAL HISTORY: Please see above. PAST SURGERY HISTORY: No major surgery recently. ALLERGY: NKDA MEDICATIONS: Refer to [facility] FAMILY HISTORY: Non contributory. SOCIAL HISTORY: Lives at home. Denies smoking, drinking, and illicit drug use. REVIEW OF SYSTEMS: Constitutional: No malnutrition, weight loss, cachexia. Head: No traumatic brain or head injury. Skin: No edema, or rash. Ear: No infection. Eyes: No vision loss or color blindness. Nose: No bleeding or purulent discharges. Hearing: No hearing decrease. Neck: No injury. Cardiac: CAD, HTN, HLD. Pulmonary: No COPD. GI: No GI ulcer, GI bleeding. Urinary/genital: No dysuria, incontinence, urinary retention. Endocrinologic: No cousin face, craniofacial dysmorphism, polydactyly\. Skeletomuscular: No muscular atrophy, deformity. Neurological: see HP. Psychiatric: Denies drug use/abuse. Otherwise, not [id number] review of systems. PHYSICAL EXAMINATION: General appearance is in no acute distress. HEENT: Normocephalic and nontraumatic. Eyes, nose, ears, and throat are unremarkable. Neck is supple. No lymphadenopathy. No crepitus. Cardiovascular: S1, S2, regular rate and rhythm. Pulmonary: Clear to auscultation bilaterally. Abdomen: Bowel sounds are positive. Abdomen is soft, nontender, and nondistended. Extremities: No rash, lesions, or edema. No restriction of range of motion NEUROLOGICAL EXAMINATION: Alert Oriented to time, place and person. PERRL. EOMI. CN: no focal findings. Muscle tone: within normal. Muscle strength: 5 DTR: 2+ Plantar reflex: Flexor response bilaterally Gait: at his baseline normal. Sensory exam: no abnormal findings. No cerebellar signs elicited. F-T-N test accurate. Objective Objective Vital Signs Date Time Temp Pulse Resp B/P (MAP) Pulse Ox O2 Delivery O2 Flow Rate FiO2 03/19/18 11:00 96.6 65 18 126/74 (91) 94 Room Air 96.6 Intake and Output 03/19/18 07:00 Intake Total 920 ml Output Total 650 ml Balance 270 ml Intake Oral 420 ml IV Total 500 ml Output Urine Total 650 ml Vitals Signs Vitals VS - Last 72 Hours, by Label Date Time Temp Pulse Resp B/P (MAP) Pulse Ox O2 Delivery O2 Flow Rate FiO2 03/19/18 11:00 96.6 65 18 126/74 (91) 94 Room Air 96.6 03/19/18 08:00 Room Air 03/19/18 07:00 97.5 55 16 140/81 (100) 94 Room Air 97.5 03/18/18 22:24 20 97 Room Air 03/18/18 21:24 20 97 Room Air 03/18/18 18:31 56 172/84 (113) 97 Room Air 03/18/18 18:12 62 148/86 03/18/18 18:05 61 12 148/86 (106) 97 Room Air 03/18/18 17:35 60 20 160/78 (105) 96 Room Air 03/18/18 17:30 97 Room Air 03/18/18 17:05 58 20 130/76 (94) 95 Room Air 03/18/18 16:49 74 20 129/69 (89) 99 Room Air 03/18/18 16:48 68 152/80 03/18/18 16:44 63 16 152/80 (104) 99 Room Air 03/18/18 16:14 71 23 163/86 (111) Room Air 03/18/18 16:11 98.3 73 16 163/86 (111) 97 Room Air 98.3 Laboratory Laboratory Laboratory Tests Test 03/18/18 16:31 03/18/18 16:43 03/18/18 18:10 03/19/18 07:33 White Blood Count 4.0 x10^3/uL (4.0-11.0) 3.7 x10^3/uL (4.0-11.0) Red Blood Count 4.90 x10^6/uL (4.30-5.70) 4.87 x10^6/uL (4.30-5.70) Hemoglobin 14.3 g/dL (13.0-17.5) 13.9 g/dL (13.0-17.5) Hematocrit 40.9 % (39.0-53.0) 41.0 % (39.0-53.0) Mean Corpuscular Volume 84 fL (79-100) 84 fL (79-100) Mean Corpuscular Hemoglobin 29 pg (25-35) 28 pg (25-35) Mean Corpuscular Hemoglobin Concent 35 g/dL (31-37) 34 g/dL (31-37) Red Cell Distribution Width 14.4 % (11.5-14.5) 14.1 % (11.5-14.5) Platelet Count 174 x10^3/uL (140-400) 166 x10^3/uL (140-400) Neutrophils (%) (Auto) 47 % (31-73) 48 % (31-73) Lymphocytes (%) (Auto) 42 % (24-48) 38 % (24-48) Monocytes (%) (Auto) 8 % (0-9) 11 % (0-9) Eosinophils (%) (Auto) 3 % (0-3) 3 % (0-3) Basophils (%) (Auto) 1 % (0-3) 0 % (0-3) Neutrophils # (Auto) 1.9 x10^3uL (1.8-7.7) 1.7 x10^3uL (1.8-7.7) Lymphocytes # (Auto) 1.7 x10^3/uL (1.0-4.8) 1.4 x10^3/uL (1.0-4.8) Monocytes # (Auto) 0.3 x10^3/uL (0.0-1.1) 0.4 x10^3/uL (0.0-1.1) Eosinophils # (Auto) 0.1 x10^3/uL (0.0-0.7) 0.1 x10^3/uL (0.0-0.7) Basophils # (Auto) 0.0 x10^3/uL (0.0-0.2) 0.0 x10^3/uL (0.0-0.2) Prothrombin Time 13.8 SEC (11.7-14.0) Prothromb Time International Ratio 1.1 (0.8-1.1) Activated Partial Thromboplast Time 24 SEC (24-38) Sodium Level 137 mmol/L (136-145) 140 mmol/L (136-145) Potassium Level 3.6 mmol/L (3.5-5.1) 4.0 mmol/L (3.5-5.1) Chloride Level 103 mmol/L (98-107) 104 mmol/L (98-107) Carbon Dioxide Level 27 mmol/L (21-32) 31 mmol/L (21-32) Anion Gap 7 (6-14) 5 (6-14) Blood Urea Nitrogen 10 mg/dL (8-26) 8 mg/dL (8-26) Creatinine 1.2 mg/dL (0.7-1.3) 1.2 mg/dL (0.7-1.3) Estimated GFR (Cockcroft-Gault) 72.4 72.4 BUN/Creatinine Ratio 8 (6-20) 7 (6-20) Glucose Level 166 mg/dL (70-99) 91 mg/dL (70-99) Calcium Level 8.5 mg/dL (8.5-10.1) 8.3 mg/dL (8.5-10.1) Magnesium Level 2.0 mg/dL (1.8-2.4) Total Bilirubin 0.4 mg/dL (0.2-1.0) 0.6 mg/dL (0.2-1.0) Aspartate Amino Transf (AST/SGOT) 16 U/L (15-37) 15 U/L (15-37) Alanine Aminotransferase (ALT/SGPT) 26 U/L (16-63) 24 U/L (16-63) Alkaline Phosphatase 72 U/L (46-116) 54 U/L (46-116) Creatine Kinase 135 U/L (39-308) Creatine Kinase MB (Mass) 1.3 ng/mL (0.0-3.6) Creatine Kinase MB Relative Index 1.0 % (0-4) Troponin I Quantitative 0.018 ng/mL (0.000-0.055) 0.019 ng/mL (0.000-0.055) ED-Jsl-D-Type Natriuretic Peptide 632 pg/mL (0-124) Total Protein 6.8 g/dL (6.4-8.2) 6.3 g/dL (6.4-8.2) Albumin 3.5 g/dL (3.4-5.0) 3.2 g/dL (3.4-5.0) Albumin/Globulin Ratio 1.1 (1.0-1.7) 1.0 (1.0-1.7) Urine Collection Type Unknown Urine Color Yellow Urine Clarity Clear Urine pH 6.0 Urine Specific [place] <=1.005 Urine Protein Negative mg/dL (NEG-TRACE) Urine Glucose (UA) Negative mg/dL (NEG) Urine Ketones (Stick) Negative mg/dL (NEG) Urine Blood Negative (NEG) Urine Nitrite Negative (NEG) Urine Bilirubin Negative (NEG) Urine Urobilinogen Dipstick 0.2 mg/dL (0.2 mg/dL) Urine Leukocyte Esterase Negative (NEG) Urine RBC 0 /HPF (0-2) Urine WBC 0 /HPF (0-4) Urine Squamous Epithelial Cells Occ /LPF Urine Bacteria 0 /HPF (0-FEW) Vitamin B12 Level 278 pg/mL (247-911) Thyroid Stimulating Hormone (TSH) 1.188 uIU/mL (0.358-3.74) Triglycerides Level 47 mg/dL (0-150) Cholesterol Level 130 mg/dL (0-200) LDL Cholesterol, Calculated 74 mg/dL (0-100) VLDL Cholesterol, Calculated 9 mg/dL (0-40) Non-HDL Cholesterol Calculated 83 mg/dL (0-129) HDL Cholesterol 47 mg/dL (40-60) Cholesterol/HDL Ratio 2.8 Medication Medications Current Medications Acetaminophen (Tylenol) 500 mg PRN Q6HRS PRN PO MILD PAIN / TEMP; Start at 09:00 Albuterol/ Ipratropium (Duoneb) 3 ml 1X ONCE NEB Last administered on at 17:30; Start 03/18/18 at 17:45; Stop 03/18/18 at 17:46; Status DC Aspirin (Jas Aspirin) 325 mg DAILYWBKFT PO ; Start 03/19/18 at 08:00; Status Cancel Aspirin (Children'S Aspirin) 81 mg DAILY PO Last administered on 03/19/18at 11: 51; Start 03/19/18 at 09:00 Aspirin (Children'S Aspirin) 324 mg 1X ONCE PO Last administered on 03/18/18at 16:44; Start 03/18/18 at 16:45; Stop 03/18/18 at 16:46; Status DC Atorvastatin Calcium (Lipitor) 40 mg QHS PO ; Start 03/19/18 at 21:00 Carvedilol (Coreg) 6.25 mg BIDWMEALS PO ; Start 03/19/18 at 08:00; Status UNV Diphenhydramine HCl (Benadryl) 25 mg 1X ONCE PO Last administered on at 21:21; Start 03/18/18 at 21:15; Stop 03/18/18 at 21:16; Status DC Hydrochlorothiazide (Microzide) 25 mg DAILY PO Last administered on 03/19/18at 11:51; Start 03/19/18 at 09:00 Lisinopril (Prinivil) 10 mg 1X ONCE PO ; Start 03/18/18 at 20:00; Stop at 20:01; Status UNV Morphine Sulfate (Morphine Sulfate) 4 mg Q2HR PRN IV pain; Start 03/18/18 at 20 :00; Status UNV Nitroglycerin (Nitro-Bid Oint) 0.5 inch 1X ONCE TP Last administered on at 18:12; Start 03/18/18 at 18:30; Stop 03/18/18 at 18:31; Status DC Nitroglycerin (Nitrostat) 0.4 mg 1X ONCE SL Last administered on 03/18/18at 16: 48; Start 03/18/18 at 16:45; Stop 03/18/18 at 16:46; Status DC Nitroglycerin (Nitrostat) 0.4 mg PRN Q5MIN PRN SL CHEST PAIN; Start 03/18/18 at 21:15 Ondansetron HCl (Zofran) 8 mg PRN Q8HRS PRN IV NAUSEA/VOMITING Last administered on 03/19/18at 02:23; Start 03/19/18 at 02:15 Sodium Chloride 500 ml @ 500 mls/hr 1X ONCE IV Last administered on at 16:45; Start 03/18/18 at 16:45; Stop 03/18/18 at 17:44; Status DC Tramadol HCl (Ultram) 50 mg PRN Q6HRS PRN PO MODERATE-SEVERE PAIN Last administered on 03/18/18at 21:24; Start 03/18/18 at 21:15 Comment Review of Relevant I have reviewed the following items emperatriz (where applicable) has been applied. GABRIELE CHAVARRIA MD Mar 19, 2018 14:20
[2018-03-19 15:00] VITALS: BP 140/81
[2018-03-19 19:00] VITALS: BP 149/83
[2018-03-19] MEDS: traMADol 50 MG TABLET PO PRN (20:56)
[2018-03-19] MEDS ORDERED: ATORVASTATIN CALCIUM 40 MG TABLET. PO SCH (21:00)
[2018-03-19 22:56] VITALS: BP 146/85
[2018-03-20 01:13] LABS: HEMOGLOBIN A1C 5.6 % (4.8-5.6)
[2018-03-20 02:50] VITALS: BP 137/80
[2018-03-20 07:00] VITALS: BP 122/81
--- NOTE | 2018-03-20 09:30 | PDOC ---
CARDIOLOGY PROGRESS NOTE SUBJECTIVE: No acute cardiac events overnight. Denies any exertional chest pain or dyspnea. Pain occurs randomly. No alleviating or exacerbating factors. OBJECTIVE: Vital SIgns: Vital Signs Date Time Temp Pulse Resp B/P (MAP) Pulse Ox O2 Delivery O2 Flow Rate FiO2 03/20/18 07:00 97.9 57 18 122/81 (95) 98 Room Air 97.9 I & O Intake and Output 03/20/18 07:00 Intake Total 2440 ml Balance 2440 ml Intake Oral 2440 ml # Voids 3 Objective: a/o x 3. nad walking around the room without problems. no edema. normal heart tones. CURRENT MEDICATIONS: asa atorvastatin coreg lisinopril DIAGNOSTIC TESTING: Reviewed extensive testing done at [facility] Echo - EF 55%. No valvular disease. MRI heart - scar in the lateral wall of the heart, ? prior embolic infarct versus microvascular disease. MPI - no ischemia. Low normal EF at 51% Cath - no critical stenosis. ASSESSMENT: 1. Chest pain - very atypical: His symptoms and testing would not warrant any PCI at this time. 2. Non-obstructive CAD 3. HTN PLAN: 1. Continue present meds. May try Renexa on an outpt basis to see if there is a microvascular component. Pls call with questions. ok to be discharged. ARLYN SCHWAB MD Mar 20, 2018 09:30
[2018-03-20] MEDS: ASPIRIN CHEWABLE 81 MG TABLET. PO SCH (09:36)
[2018-03-20] MEDS: hydroCHLOROthiazide 12.5 MG CAPSULE PO SCH (09:36)
--- NOTE | 2018-03-20 09:59 | PDOC3 ---
Discharge Summary Visit Information Date of Admission: Mar 18, 2018 Date of Discharge: Mar 20, 2018 Admitting Diagnosis Comment: CHest pain, hx CAD Blurred vision x 2 times. TIA symptoms. Dizziness. NAusea HTN. HLD. Final Diagnosis Problems Medical Problems: (1) Blurred vision, bilateral Status: Acute (2) Chest pain Status: Acute (3) Dizziness Status: Acute Brief Hospital Course Allergies Allergies Coded Allergies Type Severity Reaction Last Updated Verified No Known Drug Allergies 03/18/18 No Vital Signs Vital Signs Date Time Temp Pulse Resp B/P (MAP) Pulse Ox O2 Delivery O2 Flow Rate FiO2 03/20/18 07:00 97.9 57 18 122/81 (95) 98 Room Air 97.9 Lab Results Laboratory Tests Test 03/18/18 16:31 03/18/18 16:43 03/18/18 18:10 03/19/18 07:33 White Blood Count 4.0 x10^3/uL (4.0-11.0) 3.7 x10^3/uL (4.0-11.0) Red Blood Count 4.90 x10^6/uL (4.30-5.70) 4.87 x10^6/uL (4.30-5.70) Hemoglobin 14.3 g/dL (13.0-17.5) 13.9 g/dL (13.0-17.5) Hematocrit 40.9 % (39.0-53.0) 41.0 % (39.0-53.0) Mean Corpuscular Volume 84 fL (79-100) 84 fL (79-100) Mean Corpuscular Hemoglobin 29 pg (25-35) 28 pg (25-35) Mean Corpuscular Hemoglobin Concent 35 g/dL (31-37) 34 g/dL (31-37) Red Cell Distribution Width 14.4 % (11.5-14.5) 14.1 % (11.5-14.5) Platelet Count 174 x10^3/uL (140-400) 166 x10^3/uL (140-400) Neutrophils (%) (Auto) 47 % (31-73) 48 % (31-73) Lymphocytes (%) (Auto) 42 % (24-48) 38 % (24-48) Monocytes (%) (Auto) 8 % (0-9) 11 % (0-9) Eosinophils (%) (Auto) 3 % (0-3) 3 % (0-3) Basophils (%) (Auto) 1 % (0-3) 0 % (0-3) Neutrophils # (Auto) 1.9 x10^3uL (1.8-7.7) 1.7 x10^3uL (1.8-7.7) Lymphocytes # (Auto) 1.7 x10^3/uL (1.0-4.8) 1.4 x10^3/uL (1.0-4.8) Monocytes # (Auto) 0.3 x10^3/uL (0.0-1.1) 0.4 x10^3/uL (0.0-1.1) Eosinophils # (Auto) 0.1 x10^3/uL (0.0-0.7) 0.1 x10^3/uL (0.0-0.7) Basophils # (Auto) 0.0 x10^3/uL (0.0-0.2) 0.0 x10^3/uL (0.0-0.2) Prothrombin Time 13.8 SEC (11.7-14.0) Prothromb Time International Ratio 1.1 (0.8-1.1) Activated Partial Thromboplast Time 24 SEC (24-38) Sodium Level 137 mmol/L (136-145) 140 mmol/L (136-145) Potassium Level 3.6 mmol/L (3.5-5.1) 4.0 mmol/L (3.5-5.1) Chloride Level 103 mmol/L (98-107) 104 mmol/L (98-107) Carbon Dioxide Level 27 mmol/L (21-32) 31 mmol/L (21-32) Anion Gap 7 (6-14) 5 (6-14) Blood Urea Nitrogen 10 mg/dL (8-26) 8 mg/dL (8-26) Creatinine 1.2 mg/dL (0.7-1.3) 1.2 mg/dL (0.7-1.3) Estimated GFR (Cockcroft-Gault) 72.4 72.4 BUN/Creatinine Ratio 8 (6-20) 7 (6-20) Glucose Level 166 mg/dL (70-99) 91 mg/dL (70-99) Calcium Level 8.5 mg/dL (8.5-10.1) 8.3 mg/dL (8.5-10.1) Magnesium Level 2.0 mg/dL (1.8-2.4) Total Bilirubin 0.4 mg/dL (0.2-1.0) 0.6 mg/dL (0.2-1.0) Aspartate Amino Transf (AST/SGOT) 16 U/L (15-37) 15 U/L (15-37) Alanine Aminotransferase (ALT/SGPT) 26 U/L (16-63) 24 U/L (16-63) Alkaline Phosphatase 72 U/L (46-116) 54 U/L (46-116) Creatine Kinase 135 U/L (39-308) Creatine Kinase MB (Mass) 1.3 ng/mL (0.0-3.6) Creatine Kinase MB Relative Index 1.0 % (0-4) Troponin I Quantitative 0.018 ng/mL (0.000-0.055) 0.019 ng/mL (0.000-0.055) XT-Uqs-M-Type Natriuretic Peptide 632 pg/mL (0-124) Total Protein 6.8 g/dL (6.4-8.2) 6.3 g/dL (6.4-8.2) Albumin 3.5 g/dL (3.4-5.0) 3.2 g/dL (3.4-5.0) Albumin/Globulin Ratio 1.1 (1.0-1.7) 1.0 (1.0-1.7) Urine Collection Type Unknown Urine Color Yellow Urine Clarity Clear Urine pH 6.0 Urine Specific [place] <=1.005 Urine Protein Negative mg/dL (NEG-TRACE) Urine Glucose (UA) Negative mg/dL (NEG) Urine Ketones (Stick) Negative mg/dL (NEG) Urine Blood Negative (NEG) Urine Nitrite Negative (NEG) Urine Bilirubin Negative (NEG) Urine Urobilinogen Dipstick 0.2 mg/dL (0.2 mg/dL) Urine Leukocyte Esterase Negative (NEG) Urine RBC 0 /HPF (0-2) Urine WBC 0 /HPF (0-4) Urine Squamous Epithelial Cells Occ /LPF Urine Bacteria 0 /HPF (0-FEW) Vitamin B12 Level 278 pg/mL (247-911) Thyroid Stimulating Hormone (TSH) 1.188 uIU/mL (0.358-3.74) Hemoglobin A1c 5.6 % (4.8-5.6) Triglycerides Level 47 mg/dL (0-150) Cholesterol Level 130 mg/dL (0-200) LDL Cholesterol, Calculated 74 mg/dL (0-100) VLDL Cholesterol, Calculated 9 mg/dL (0-40) Non-HDL Cholesterol Calculated 83 mg/dL (0-129) HDL Cholesterol 47 mg/dL (40-60) Cholesterol/HDL Ratio 2.8 Brief Hospital Course Mr. Ibanez is a 72 old very pleasant -[place] male, admitted for chest pain, dizziness and blurred vision. But essentially cardiac and neuro workup is all negative. No PT needs. Cleared by both services to go home To go home today with no new meds, continue statin, aspirin 81 and HCTZ which are all his home meds No prescription needed for me Discharge time less than 30 minutes Procedures performed lots of imaging Consults neuro and cardiology Discharge Information Condition at Discharge: Improved, Stable Disposition/Orders: D/C to Home Scheduled Aspirin (Aspirin) 81 Mg Tab.chew, 1 TAB PO DAILY, #30 (Reported) Entered as Reported by: RONIT DEL ANGEL on 03/19/18602 Last Action: Continued on 03/19/18603 by RONIT DEL ANGEL Atorvastatin Calcium (Lipitor) 40 Mg Tablet, 1 TAB PO QHS, #90 Ref 1 (Reported) Entered as Reported by: RONIT DEL ANGEL on 03/19/18602 Last Action: Continued on 03/19/18603 by RONIT DEL ANGEL Hydrochlorothiazide (Hydrochlorothiazide Tablet) 12.5 Mg Tablet, 2 TAB PO DAILY , #30 Ref 5 (Reported) Entered as Reported by: RONIT DEL ANGEL on 03/19/18602 Last Action: Converted on 03/19/18603 by EDITH DUMONT MD Mar 20, 2018 09:59
== END 2018-03-20 12:06 | disposition home or self-care (01) | DRG 206 ==
LOC: ER 16:09 → 5 SOUTH 18:25 → ER 19:05
PROVIDERS: ADMIT Internal Medicine; ATTEND Internal Medicine
DX: M94.0 Chondrocostal junction syndrome [Tietze] (principal); H53.8 Other visual disturbances; I50.9 Heart failure, unspecified; I11.0 Hypertensive heart disease with heart failure; E78.5 Hyperlipidemia, unspecified; I25.10 Atherosclerotic heart disease of native coronary artery without angina pectoris; Z86.73 Personal history of transient ischemic attack (TIA), and cerebral infarction without residual deficits; Z82.49 Family history of ischemic heart disease and other diseases of the circulatory system; Z79.82 Long term (current) use of aspirin
CPT/HCPCS: 99285; C8929; 36415; 70450; 71046; 80053; 80061; 81001; 82553; 82607; 83036; 83735; 83880; 84443; 84484; 85025; 85610; 85730; 93005; 93880; 94640; 96360; J2405; J7040; J7620; Q0163

== ENCOUNTER 2021-11-15 15:04 | Emergency (ER) | payer MEDICARE ==
[~2021-11-15] VITALS: Ht 170.2 cm; Wt 85.9 kg
[~2021-11-15 15:04] MED LIST: ASPI-630 PO; ATOR40TA PO; HYDR12.58 PO
[2021-11-15] MEDS ORDERED: traMADol 50 MG TABLET PO ONE (16:30)
[2021-11-15 16:46] LABS: BASO % 1 % (0-3); EOS # 0.1 x10^3/uL (0.0-0.7); EOS % 2 % (0-3); HEMATOCRIT 38.5 % (39.0-53.0); HEMOGLOBIN 12.9 g/dL (13.0-17.5); LYMPH # 1.1 x10^3/uL (1.0-4.8); LYMPH % 32 % (24-48); MEAN CORPUSCULAR HEMOGLOBIN 28 pg (25-35); MEAN CORPUSCULAR HGB CONC 33 g/dL (31-37); MEAN CORPUSCULAR VOLUME 85 fL (79-100); MONO # 0.4 x10^3/uL (0.0-1.1); MONO % 12 % (0-9); NEUT # 1.8 x10^3/uL (1.8-7.7); NEUT % 53 % (31-73); PLATELET COUNT 192 x10^3/uL (140-400); RED BLOOD COUNT 4.56 x10^6/uL (4.30-5.70); RED CELL DISTRIBUTION WIDTH 14.8 % (11.5-14.5); WHITE BLOOD COUNT 3.4 x10^3/uL (4.0-11.0)
[2021-11-15] MEDS ORDERED: TRAM50TA PO (17:25)
--- NOTE | 2021-11-15 17:26 | PHYS DOC ---
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 Patient states this started after he started taking Lipitor. Denies any history of diabetes. Denies any injuries. Denies any chest pain. Denies any shortness of breath denies any fevers or chills. States that the neuropathic pain feels like [id number] and electricity going through them. Review of Systems: Review of Systems: Constitutional: Denies fever or chills. [] Eyes: Denies change in visual acuity. [] HENT: Denies nasal congestion or sore throat. [] Respiratory: Denies cough or shortness of breath. [] Cardiovascular: Denies chest pain or edema. [] GI: Denies abdominal pain, nausea, vomiting, bloody stools or diarrhea. [] : Denies dysuria. [] Musculoskeletal: Denies back pain or joint pain. [] Integument: Denies rash. [] Neurologic: Neuropathic pain denies headache, focal weakness or sensory changes. [] Endocrine: Denies polyuria or polydipsia. [] Lymphatic: Denies swollen glands. [] Psychiatric: Denies depression or anxiety. [] Heart Score: C/O Chest Pain: No Risk Factors: Risk Factors: DM, Current or recent (<one month) smoker, HTN, HLP, family history of CAD, obesity. Risk Scores: Score 0 - 3: 2.5% MACE over next 6 weeks - Discharge Home Score 4 - 6: 20.3% MACE over next 6 weeks - Admit for Clinical Observation Score 7 - 10: 72.7% MACE over next 6 weeks - Early Invasive Strategies Current Medications: Current Medications Medications (Trade) Dose Ordered Sig/Samara Start Time Stop Time Status Last Admin Dose Admin Tramadol HCl (Ultram) 50 mg 1X ONCE 11/15/21 16:30 11/15/21 16:32 DC 11/15/21 16:48 50 MG Allergies: Allergies: Allergies Coded Allergies Type Severity Reaction Last Updated Verified No Known Drug Allergies 11/15/21 No Physical Exam: PE: Constitutional: Well developed, well nourished, no acute distress, non-toxic appearance. [] HENT: Normocephalic, atraumatic, bilateral external ears normal, oropharynx moist, no oral exudates, nose normal. [] Eyes: PERRLA, EOMI, conjunctiva normal, no discharge. [] Neck: Normal range of motion, no tenderness, supple, no stridor. [] Cardiovascular:Heart rate regular rhythm, no murmur [] Lungs & Thorax: Bilateral breath sounds clear to auscultation [] Abdomen: Bowel sounds normal, soft, no tenderness, no masses, no pulsatile masses. [] Skin: Warm, dry, no erythema, no rash. [] Back: No tenderness, no CVA tenderness. [] Extremities: No tenderness, no cyanosis, no clubbing, ROM intact, no edema. [] Neurologic: Alert and oriented X 3, normal motor function, normal sensory function, no focal deficits noted. [] Psychologic: Affect normal, judgement normal, mood normal. [] Current Patient Data: Labs: Laboratory Tests Test 11/15/21 16:28 White Blood Count 3.4 x10^3/uL (4.0-11.0) L Red Blood Count 4.56 x10^6/uL (4.30-5.70) Hemoglobin 12.9 g/dL (13.0-17.5) L Hematocrit 38.5 % (39.0-53.0) L Mean Corpuscular Volume 85 fL (79-100) Mean Corpuscular Hemoglobin 28 pg (25-35) Mean Corpuscular Hemoglobin Concent 33 g/dL (31-37) Red Cell Distribution Width 14.8 % (11.5-14.5) H Platelet Count 192 x10^3/uL (140-400) Neutrophils (%) (Auto) 53 % (31-73) Lymphocytes (%) (Auto) 32 % (24-48) Monocytes (%) (Auto) 12 % (0-9) H Eosinophils (%) (Auto) 2 % (0-3) Basophils (%) (Auto) 1 % (0-3) Neutrophils # (Auto) 1.8 x10^3/uL (1.8-7.7) Lymphocytes # (Auto) 1.1 x10^3/uL (1.0-4.8) Monocytes # (Auto) 0.4 x10^3/uL (0.0-1.1) Eosinophils # (Auto) 0.1 x10^3/uL (0.0-0.7) Basophils # (Auto) 0.0 x10^3/uL (0.0-0.2) Laboratory Tests 11/15/21 16:28 Vital Signs: Vital Signs Date Time Temp Pulse Resp B/P (MAP) Pulse Ox O2 Delivery O2 Flow Rate FiO2 11/15/21 16:49 97 14 126/70 (88) 98 11/15/21 16:48 Room Air 11/15/21 15:20 98.6 98.6 EKG: EKG: [] Radiology/Procedures: Radiology/Procedures: [] Course & Med Decision Making: Course & Med Decision Making Pertinent Labs and Imaging studies reviewed. (See chart for details) [] Discussed with patient that he should stop the Lipitor. Patient given pain medication patient states currently pain-free. Return precautions were discussed with the patient questions and concerns were addressed. Patient will follow up with his primary care physician Gay Disclaimer: Gay Disclaimer: This electronic medical record was generated, in whole or in part, using a voice recognition dictation system. Departure Departure Impression: Primary Impression: Neuropathy Disposition: 01 HOME / SELF CARE / HOMELESS Condition: STABLE Referrals: VAL FERRELL MD (PCP) Patient Instructions: Pain, Neuropathic Scripts Tramadol Hcl (TRAMADOL HCL) 50 Mg Tablet 50 MG PO DAILY PRN for PAIN for 3 Days, #12 TAB 0 Refills Prov: MACK SALAZAR DO 11/15/21 MACK SALAZAR DO Nov 15, 2021 17:26
[2021-11-15 17:30] VITALS: BP 145/70
[2021-11-15 18:27] LABS: CALCIUM 8.5 mg/dL (8.5-10.1); CREATININE 1.1 mg/dL (0.7-1.3); GFR 79.4; POTASSIUM 3.7 mmol/L (3.5-5.1)
[2021-11-15 18:34] LABS: ALBUMIN/GLOBULIN RATIO 0.9 (1.0-1.7); TOTAL BILIRUBIN 0.3 mg/dL (0.2-1.0); TOTAL PROTEIN 6.4 g/dL (6.4-8.2)
--- NOTE | 2021-11-16 04:31 | EKG ---
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
== END 2021-11-15 18:53 | disposition home or self-care (01) ==
LOC: ER 15:04
DX: G62.9 Polyneuropathy, unspecified (principal); I10 Essential (primary) hypertension; Z86.73 Personal history of transient ischemic attack (TIA), and cerebral infarction without residual deficits
CPT/HCPCS: 36415; 80053; 82550; 85025; 93005; 99285-25